=== PATIENT | female | born 1955 | race Caucasian/White ===

== ENCOUNTER 2018-10-26 06:36 | Inpatient (IN) | payer OTHER | END 2018-10-28 11:55 | disposition still patient (30) | LOC: PAS 11:25 → ORTHO 4S 17:58 → PAS 17:58 → ORTHO 4S 06:36 | PROC: 0SRD0J9 Replacement of Left Knee Joint with Synthetic Substitute, Cemented, Open Approach (ICD-10-PCS; principal; 2018-10-26 13:09) | DX: M17.12 Unilateral primary osteoarthritis, left knee (principal); D62 Acute posthemorrhagic anemia; M47.814 Spondylosis without myelopathy or radiculopathy, thoracic region; M47.816 Spondylosis without myelopathy or radiculopathy, lumbar region ==

== ENCOUNTER 2022-10-29 04:26 | Inpatient (IN) | payer MEDICARE, OTHER ==
[2022-10-29] VITALS (13 sets, daily range): BP systolic 80–139; BP diastolic 42–83
[~2022-10-29] VITALS: Ht 147.3 cm; Wt 77.0 kg
[~2022-10-29 04:26] MED LIST: AMLO2.5T2 PO; AREDS; ATOR40TA PO; BLAC200C4 PO; BUSP5TAB3 PO; DICL100G15 TOP; DIPH-518 PO; DOXY25PO2 PO; LORA0.5T PO; MELATONIN10 MG PO; PANT-47 PO; POTA10CA45 PO; SUCR1TAB PO; TRIA1TAB3 PO; [UNRECOGNIZED DRUG - CODE] PO; [UNRECOGNIZED DRUG - OTHER]
[2022-10-29 04:58] LABS: BASOPHILS % (AUTO) 0.1 % (0-1); EOSINOPHILS % (AUTO) 0.1 % (0-6); HEMATOCRIT 36.6 % (35.0-45.0); HEMOGLOBIN 12.6 g/dl (12.0-16.0); LYMPHOCYTES # (AUTO) 0.9 X10'3 (1.1-4.8); LYMPHOCYTES % (AUTO) 5.8 % (21-51); MEAN CORPUSCULAR HEMOGLOBIN 31.9 PG (27.0-31.0); MEAN CORPUSCULAR HGB CONC 34.5 g/dL (33.0-36.5); MEAN CORPUSCULAR VOLUME 92.5 FL (78-98); MEAN PLATELET VOLUME 7.5 FL (7.4-10.4); NEUTROPHILS # (AUTO) 12.8 X10'3 (1.8-7.7); PLATELET COUNT 137 X10'3 (140-440); RED BLOOD COUNT 3.95 X10'6 (4.20-5.60); RED CELL DISTRIBUTION WIDTH 13.7 % (11.5-14.5); WHITE BLOOD COUNT 14.7 X10'3 (4.5-11.0)
[2022-10-29 05:14] LABS: ALANINE AMINOTRANSFERASE 31 U/L (12-78); ALKALINE PHOSPHATASE 82 IU/L (46-116); ANION GAP 8 (8-16); ASPARTATE AMINO TRANSFERASE 28 U/L (10-37); BILIRUBIN,TOTAL 1.1 MG/DL (0.1-1.0); BLOOD UREA NITROGEN 45 MG/DL (7-18); BUN/CREATININE RATIO 17.9 (10.0-20.0); CHLORIDE 96 MMOL/L (99-107); CREATININE 2.51 MG/DL (0.40-0.90); GLUCOSE 140 MG/DL (70-104); LIPASE < 50 U/L (73-393); SODIUM 132 MMOL/L (135-145); TOTAL CARBON DIOXIDE 27.7 MMOL/L (24-32); TOTAL PROTEIN 6.1 G/DL (6.4-8.2); eGFR 19 ML/MIN
[2022-10-29 05:25] LABS: CALCIUM 8.3 MG/DL (8.5-10.1)
[2022-10-29] MEDS ORDERED: piperacillin/tazo 3.375gm/50ml 50 ML IV ONE (05:50)
[2022-10-29] MEDS ORDERED: potassium Cl 40MEQ/1/2NS 520ml 520 ML IV ONE (05:55)
[2022-10-29] MEDS ORDERED: normal saline 1000ML IV soln IV ONE (06:20)
[2022-10-29 07:30] LABS: CLARITY,URINE CLOUDY (Clear); COLOR,URINE YELLOW (Yellow); GLUCOSE, URINE NEGATIVE (Neg); KETONES,URINE NEGATIVE (Neg); LEUKOCYTE ESTERASE ,URINE MODERATE (Neg); NITRITES, URINE NEGATIVE (Neg); OCCULT BLOOD,URINE LARGE (Neg); PROTEIN,URINE 100 mg/dl (Neg); UROBILINOGEN,URINE 0.2 E.U/dL (0.2-1.0)
[2022-10-29 07:35] LABS: UA COLLECTION TYPE STRAIGHT CATH
[2022-10-29 07:36] LABS: BACTERIA,URINE 4+ /HPF (Neg); RBC,URINE 0-2 /HPF (0-2); SQUAMOUS EPITHELIAL CELL,UR FEW /LPF (FEW); WBC,URINE TNTC /HPF (0-4)
[2022-10-29 07:37] LABS: MUCUS STRANDS FEW /LPF (Neg); WBC CLUMPS,URINE MANY /HPF (NEGATIVE)
[2022-10-29 08:05] LABS: APTT 46 SECONDS (22-32)
[2022-10-29] MEDS ORDERED: acetaminophen 325mg tablet PO ONE (08:15)
[2022-10-29] MEDS ORDERED: ondansetron/PF 4mg/2ml inj IV PRN (08:45)
[2022-10-29] MEDS ORDERED: magnesium 2GM in 50ml NS 50 ML IV PRN (08:45)
[2022-10-29] MEDS ORDERED: mag hydrox/Alum hydrox/simeth 30ml oral suspension PO PRN (08:45)
[2022-10-29] MEDS ORDERED: magnesium 4gm in 100ml NS 100 ML IV PRN (08:45)
[2022-10-29] MEDS ORDERED: acetaminophen 325mg tablet PO PRN ×2 (08:45→11:15)
[2022-10-29] MEDS ORDERED: magnesium hydroxide 30ml (MOM) UD suspension PO PRN ×2 (08:45→11:15)
[2022-10-29] MEDS ORDERED: potassium Cl 40MEQ/1/2NS 520ml 520 ML IV PRN (08:45)
[2022-10-29] MEDS ORDERED: magnesium Cl slow-release 64mg tablet PO PRN (08:45)
[2022-10-29] MEDS ORDERED: potassium Cl 20 mEq SR tablet PO PRN ×2 (08:45)
[2022-10-29] MEDS ORDERED: DOPamine 400mg/D5W 250ml 250 ML IV SCH (09:10)
[2022-10-29] MEDS: dextrose 5%-1/2 normal saline 1,000 ML IV SCH ×2 (09:19→10:00)
[2022-10-29] MEDS ORDERED: NORepinephrine 8mg/ 250ml NS 250 ML IV PRN (09:30)
[2022-10-29] MEDS ORDERED: normal saline 1000ml 1,000 ML IV ONE (10:00)
--- NOTE | 2022-10-29 10:25 | NUR ---
Report received from JENNIFER Lopez RN
--- NOTE | 2022-10-29 10:53 | NUR ---
This AM, RN administer 2L 0.9% NaCl, upon completion, SBP was 100s. Shortly thereafter, BP decreased to 69/37. RN notified Dr. Vo and Dr. Tarango SAMSON. Per Dr. Gilda RN to order dopamine gtt per protocol. RN ordered. However, Per Dr. Sukhdeep RN to hold dopamine gtt and administer levophed alternatively. Central line inserted. Levophed started at 0.1 mcg/kg/mn. Dr. Elias at bedside, verbal orders to administer 0.9% NaCl IVF at 999 ml/hr, stop D5 and 0.45% NaCl, and transfer pt to the ICU [facility]. Central line confirmed by XR. Levophed titrated to 0.15 mcg/kg/mn. Pt tolerating, BP 103/43, MAP 65. RN gave nurse report to JUANITA Rose. Pt stable upon transfer.
[2022-10-29] MEDS: normal saline 1000ml 1,000 ML IV SCH ×2 (11:45→20:26)
[2022-10-29] MEDS ORDERED: ROSU20TA31 PO (13:32)
[2022-10-29] MEDS ORDERED: ALBU17AE26 (13:32)
[2022-10-29] MEDS ORDERED: GABA300C PO (13:32)
[2022-10-29] MEDS ORDERED: HYDR-3965 PO (13:32)
[2022-10-29] MEDS ORDERED: GABAPENTIN PO (13:32)
[2022-10-29] MEDS ORDERED: PANT40TA54 PO (13:32)
[2022-10-29] MEDS ORDERED: GABA300C (13:32)
[2022-10-29] MEDS ORDERED: ALBU18HF2 PO (13:32)
[2022-10-29] MEDS ORDERED: WARF3TAB56 PO (13:32)
[2022-10-29] MEDS ORDERED: METO-384 PO (13:32)
[2022-10-29] MEDS ORDERED: BUSP15TA3 PO (13:32)
[2022-10-29] MEDS ORDERED: POTA8TAB69 PO (13:32)
[2022-10-29] MEDS ORDERED: WARF-55 PO (13:32)
[2022-10-29] MEDS ORDERED: LOSA50TA64 PO (13:32)
[2022-10-29] MEDS: CefTRIAXone/D5W-Rocephin 1gm 50 ML IV SCH (13:40)
[2022-10-29] MEDS: morphine 2 MG/ML inj. syringe IV PRN ×2 (13:41→23:59)
[2022-10-29] MEDS: piperacillin/tazo 3.375gm/50ml 50 ML IV SCH (16:19)
--- NOTE | 2022-10-29 18:00 | NUR ---
Patient in room ICU 2037. I have received report from Lucía GRANT and had the opportunity to ask questions and assume patient care.
--- NOTE | 2022-10-29 18:29 | NUR ---
Problems reprioritized. Patient report given, questions answered & plan of care reviewed with JUANITA Pizarro. Addendum: 10/29/22 at 1829 by Rose Garcia RN report given JUANITA Sofia not JUANITA Pizarro
[2022-10-29] MEDS: K and/or MAG REPLACEMENT MC SCH (20:00)
[2022-10-29] MEDS ORDERED: docusate sod 100mg capsule PO SCH (20:00)
[2022-10-29] MEDS: docusate sod 100mg capsule PO SCH (20:00)
[2022-10-30] VITALS (23 sets, daily range): BP systolic 72–154; BP diastolic 41–81
[2022-10-30] MEDS: piperacillin/tazo 3.375gm/50ml 50 ML IV SCH ×3 (01:54→20:50)
[2022-10-30 03:06] LABS: BASOPHILS % (AUTO) 0.1 % (0-1); EOSINOPHILS % (AUTO) 0.1 % (0-6); HEMATOCRIT 28.9 % (35.0-45.0); LYMPHOCYTES # (AUTO) 0.6 X10'3 (1.1-4.8); LYMPHOCYTES % (AUTO) 6.9 % (21-51); MEAN CORPUSCULAR HEMOGLOBIN 31.9 PG (27.0-31.0); MEAN CORPUSCULAR HGB CONC 34.5 g/dL (33.0-36.5); MEAN CORPUSCULAR VOLUME 92.5 FL (78-98); MEAN PLATELET VOLUME 7.6 FL (7.4-10.4); MONOCYTES # (AUTO) 0.7 X10'3 (0-0.9); MONOCYTES % (AUTO) 7.7 % (2-12); NEUTROPHILS # (AUTO) 7.8 X10'3 (1.8-7.7); NEUTROPHILS % (AUTO) 85.2 % (42-75); PLATELET COUNT 103 X10'3 (140-440); RED BLOOD COUNT 3.12 X10'6 (4.20-5.60); RED CELL DISTRIBUTION WIDTH 14.1 % (11.5-14.5); WHITE BLOOD COUNT 9.2 X10'3 (4.5-11.0)
[2022-10-30 03:22] LABS: ALANINE AMINOTRANSFERASE 51 U/L (12-78); ALBUMIN/GLOBULIN RATIO 0.7 (1.1-1.5); ALKALINE PHOSPHATASE 131 IU/L (46-116); ANION GAP 8 (8-16); ASPARTATE AMINO TRANSFERASE 46 U/L (10-37); BILIRUBIN,TOTAL 0.6 MG/DL (0.1-1.0); BLOOD UREA NITROGEN 33 MG/DL (7-18); BUN/CREATININE RATIO 17.8 (10.0-20.0); CHLORIDE 108 MMOL/L (99-107); CREATININE 1.85 MG/DL (0.40-0.90); GLUCOSE 122 MG/DL (70-104); MAGNESIUM 2.8 MG/DL (1.5-2.4); POTASSIUM 3.3 MMOL/L (3.5-5.1); SODIUM 139 MMOL/L (135-145); TOTAL CARBON DIOXIDE 23.2 MMOL/L (24-32); TOTAL PROTEIN 4.8 G/DL (6.4-8.2); eGFR 27 ML/MIN
--- NOTE | 2022-10-30 03:32 | NUR ---
CALLED CRITICAL RESULTS OF INR 5.[address] LANDON, PHARMACY WILL ADJUST THE DOSE. Addendum: 10/30/22 at 0333 by Lisa Wylie RN Amended: Links added.
[2022-10-30 03:39] LABS: PLATELET ESTIMATE DECREASED
[2022-10-30 03:40] LABS: BURR CELLS 1+; ROULEAUX 1+
[2022-10-30] MEDS: normal saline 1000ml 1,000 ML IV SCH ×2 (03:43→11:44)
[2022-10-30] MEDS: dextrose 5%-1/2 normal saline 1,000 ML IV SCH (06:05)
--- NOTE | 2022-10-30 06:40 | NUR ---
Patient in room ICU 2037. I have received report from JUANITA Sofia and had the opportunity to ask questions and assume patient care.
[2022-10-30] MEDS: docusate sod 100mg capsule PO SCH ×2 (08:00→20:00)
[2022-10-30] MEDS: K and/or MAG REPLACEMENT MC SCH ×2 (08:00→20:00)
[2022-10-30] MEDS ORDERED: pantoprazole 40MG/NS 100ML BAG 100 ML IV SCH (08:00)
[2022-10-30] MEDS: CefTRIAXone/D5W-Rocephin 1gm 50 ML IV SCH (08:13)
[2022-10-30] MEDS: morphine 2 MG/ML inj. syringe IV PRN (09:22)
[2022-10-30] MEDS ORDERED: albumin (human) 25% 100ml IV 400 ML IV ONE (10:15)
[2022-10-30] MEDS: albumin (Human) 5% 250ml 250 ML IV SCH ×3 (10:46→19:11)
--- NOTE | 2022-10-30 11:34 | NUR ---
Initial: Pt admit for septic shock and pyelonephritis. Currently on a regular diet and averaging 42% PO intake meeting 89% estimated energy needs and 65% estimated protein needs. Unable to visit with pt at bedside as pt working with bedside RN. Will follow further trends in PO intake so most appropriate nutrition intervention is recommended. LBM 10/29 per EMR however per RN at [facility] pt with two formed BMs today. Will continue to follow closely. Recommendations: 1) Continue regular/lactose free diet 2) Monitor need for ONS/additional protein 3) Routine bowel care 4) Weekly scaled weights Addendum: 10/30/22 at [address] Amended: Links added.
[2022-10-30] MEDS: HYDROcodone/acetaminophen 5mg/325mg tablet PO PRN ×2 (14:53→19:10)
[2022-10-30] MEDS ORDERED: AMIO200T61 PO (16:11)
[2022-10-30] MEDS ORDERED: HYDROcodone/acetaminophen 5mg/325mg tablet PO PRN (16:45)
[2022-10-30] MEDS: amiodarone 200mg tablet PO SCH (16:47)
[2022-10-30] MEDS ORDERED: DIPH25CA51 PO (17:24)
[2022-10-30] MEDS ORDERED: WARF2.5T82 PO (17:24)
[2022-10-30] MEDS: gabapentin 300mg capsule PO SCH ×2 (17:24→20:51)
[2022-10-30] MEDS ORDERED: CHOL500050 PO (17:25)
[2022-10-30] MEDS ORDERED: MULT-1085 PO (17:25)
--- NOTE | 2022-10-30 18:39 | NUR ---
Problems reprioritized. Patient report given, questions answered & plan of care reviewed with JUANITA Quiroz.
[2022-10-30] MEDS ORDERED: piperacillin/tazo 3.375gm/50 ML IV SCH (20:00)
[2022-10-30] MEDS: busPIRone 15mg tablet PO SCH (20:51)
[2022-10-31] VITALS (10 sets, daily range): BP systolic 107–170; BP diastolic 66–98
[2022-10-31] MEDS: piperacillin/tazo 3.375gm/50ml 50 ML IV SCH ×4 (00:20→23:32)
[2022-10-31] MEDS: normal saline 1000ml 1,000 ML IV SCH ×2 (01:09→14:32)
[2022-10-31] MEDS: HYDROcodone/acetaminophen 5mg/325mg tablet PO PRN ×4 (01:35→23:40)
[2022-10-31 02:46] LABS: BASOPHILS % (AUTO) 0.3 % (0-1); EOSINOPHILS # (AUTO) 0.1 X10'3 (0-0.9); EOSINOPHILS % (AUTO) 1.5 % (0-6); HEMATOCRIT 28.6 % (35.0-45.0); HEMOGLOBIN 9.7 g/dl (12.0-16.0); LYMPHOCYTES # (AUTO) 0.7 X10'3 (1.1-4.8); MEAN CORPUSCULAR HEMOGLOBIN 31.9 PG (27.0-31.0); MEAN CORPUSCULAR HGB CONC 34.1 g/dL (33.0-36.5); MEAN CORPUSCULAR VOLUME 93.4 FL (78-98); MEAN PLATELET VOLUME 7.7 FL (7.4-10.4); MONOCYTES # (AUTO) 0.8 X10'3 (0-0.9); NEUTROPHILS % (AUTO) 79.2 % (42-75); PLATELET COUNT 99 X10'3 (140-440); RED BLOOD COUNT 3.06 X10'6 (4.20-5.60); RED CELL DISTRIBUTION WIDTH 14.4 % (11.5-14.5); WHITE BLOOD COUNT 7.5 X10'3 (4.5-11.0)
[2022-10-31 03:55] LABS: ALANINE AMINOTRANSFERASE 105 U/L (12-78); ALBUMIN 3.2 G/DL (3.4-5.0); ALBUMIN/GLOBULIN RATIO 1.3 (1.1-1.5); ALKALINE PHOSPHATASE 176 IU/L (46-116); ANION GAP 10 (8-16); ASPARTATE AMINO TRANSFERASE 97 U/L (10-37); BILIRUBIN,TOTAL 0.5 MG/DL (0.1-1.0); BLOOD UREA NITROGEN 25 MG/DL (7-18); BUN/CREATININE RATIO 14.9 (10.0-20.0); CALCIUM 7.9 MG/DL (8.5-10.1); CHLORIDE 110 MMOL/L (99-107); CREATININE 1.68 MG/DL (0.40-0.90); GLUCOSE 120 MG/DL (70-104); MAGNESIUM 2.8 MG/DL (1.5-2.4); POTASSIUM 3.5 MMOL/L (3.5-5.1); SODIUM 143 MMOL/L (135-145); TOTAL CARBON DIOXIDE 22.7 MMOL/L (24-32); TOTAL PROTEIN 5.7 G/DL (6.4-8.2); eGFR 30 ML/MIN
--- NOTE | 2022-10-31 06:30 | NUR ---
Patient in room ICU 2037. I have received report from JUANITA Quiroz and had the opportunity to ask questions and assume patient care.
--- NOTE | 2022-10-31 06:46 | NUR ---
Problems reprioritized. Patient report given, questions answered & plan of care reviewed with JUANITA Millard.
[2022-10-31] MEDS: albumin (Human) 5% 250ml 250 ML IV SCH ×2 (06:55)
[2022-10-31] MEDS: amiodarone 200mg tablet PO SCH (06:56)
--- NOTE | 2022-10-31 07:30 | NUR ---
Pt transported to Neuro floor, room 4012B, with all belongings and medications. Accepting RN Venice at bedside to assist. Pt settled into hospital bed, call light placed within reach. Breakfast tray brought from ICU and provided to pt.
[2022-10-31] MEDS: docusate sod 100mg capsule PO SCH ×2 (08:00→20:00)
[2022-10-31] MEDS: K and/or MAG REPLACEMENT MC SCH ×2 (08:00→20:00)
[2022-10-31] MEDS ORDERED: amiodarone 200mg tablet PO SCH (08:00)
[2022-10-31] MEDS ORDERED: phytonadione inj. 3 MG in normal saline 100ml IV soln 100 ML IV ONE (08:50)
[2022-10-31] MEDS: pantoprazole 40mg Tablet.DR PO SCH (08:50)
[2022-10-31] MEDS: busPIRone 15mg tablet PO SCH ×2 (08:51→20:18)
[2022-10-31] MEDS: potassium chloride 8mEq ER tablet PO SCH (08:51)
[2022-10-31] MEDS: gabapentin 300mg capsule PO SCH ×2 (08:51→12:42)
[2022-10-31] MEDS ORDERED: phytonadione 10 MG/1 ML amp PO ONE (09:30)
[2022-10-31] MEDS: morphine 2 MG/ML inj. syringe IV PRN (11:58)
[2022-10-31] MEDS: phenazopyridine 100mg tablet PO SCH ×2 (12:41→17:15)
[2022-10-31] MEDS: ondansetron/PF 4mg/2ml inj IV PRN (12:50)
--- NOTE | 2022-10-31 18:58 | NUR ---
Page Sent PAGER ID: [phone] MESSAGE: [id number] Debra Bajwa: Pt in Afib sustaining 130-140s. EKG done. Pt got 200mg amiodarone in AM
--- NOTE | 2022-10-31 19:32 | NUR ---
Page Sent PAGER ID: [phone] MESSAGE: [id number]: Debra Bajwa: Pt in AFib sustaining in 130s-150s. EKG done, BP 143/94. pt retaining fluid in left upper extremity, placed on 1L o2 and is 93%
[2022-10-31] MEDS ORDERED: diltiazem 5mg/ml 5ml inj. IV ONE (19:50)
--- NOTE | 2022-10-31 21:07 | NUR ---
10mg Cardizem was given at 2005 by ACLS nurse. Per television news producer HR is now 90s - 110s and still Afib.
--- NOTE | 2022-10-31 21:45 | NUR ---
Called to room 4012 to give cardizam IV for pt in rapid afib; pt awake, alert, c/o mild SOB; HR 131 on tele box, GBP 139/96; sat 97% on NC 1L; 10mg cardizam given IV thru GRACY patent IV; at 2009: bp 129/79, HR 91, still afib, sat 93%; pt denies SOB at this time; repeat VS at 2019: BP 130/88, HR 86, still afib, sat 96%; HR checked multiple times on tele monitor; remains in afib, rate 90-100s
--- NOTE | 2022-10-31 22:00 | NUR ---
supervisor television chassis repair adv pt converted to sinus rhythm
[2022-11-01] VITALS (24 sets, daily range): BP systolic 120–174; BP diastolic 71–98
--- NOTE | 2022-11-01 03:32 | NUR ---
per telecommunications officer pt converted back into afib w/ HR in 90s and 100s
[2022-11-01] MEDS: ondansetron/PF 4mg/2ml inj IV PRN ×2 (04:09→20:10)
[2022-11-01] MEDS: normal saline 1000ml 1,000 ML IV SCH ×2 (04:09→16:35)
--- NOTE | 2022-11-01 04:30 | NUR ---
outbound telemarketer adv pt HR elevated into 130 - 140s. pt c/o N/V, CP 8/10, some SOB. EKG done, administered Nitro tab. pt adv CP 6/10 after 15 min.
[2022-11-01] MEDS ORDERED: nitroGLYCERIN 0.4mg SUBLingual tab SL ONE (04:34)
[2022-11-01] MEDS ORDERED: diltiazem-D5W 125mg/125ml 100 ML IV SCH (04:35)
[2022-11-01] MEDS ORDERED: nitroGLYCERIN 0.4mg SUBLingual tab SL PRN (04:35)
--- NOTE | 2022-11-01 05:00 | NUR ---
Patient in room PCU 3013. I have received report from WEST MADISON and had the opportunity to ask questions and assume patient care.
[2022-11-01 05:12] LABS: BASOPHILS % (AUTO) 0.2 % (0-1); EOSINOPHILS # (AUTO) 0.2 X10'3 (0-0.9); EOSINOPHILS % (AUTO) 2.1 % (0-6); HEMATOCRIT 30.6 % (35.0-45.0); HEMOGLOBIN 10.4 g/dl (12.0-16.0); LYMPHOCYTES # (AUTO) 0.6 X10'3 (1.1-4.8); LYMPHOCYTES % (AUTO) 7.6 % (21-51); MEAN CORPUSCULAR HEMOGLOBIN 32.1 PG (27.0-31.0); MEAN CORPUSCULAR VOLUME 94.4 FL (78-98); MEAN PLATELET VOLUME 8.4 FL (7.4-10.4); MONOCYTES # (AUTO) 0.9 X10'3 (0-0.9); MONOCYTES % (AUTO) 10.2 % (2-12); NEUTROPHILS # (AUTO) 6.7 X10'3 (1.8-7.7); NEUTROPHILS % (AUTO) 79.9 % (42-75); PLATELET COUNT 110 X10'3 (140-440); RED BLOOD COUNT 3.24 X10'6 (4.20-5.60); RED CELL DISTRIBUTION WIDTH 14.7 % (11.5-14.5); WHITE BLOOD COUNT 8.4 X10'3 (4.5-11.0)
--- NOTE | 2022-11-01 05:20 | NUR ---
marcia pt to [facility] [id number]
[2022-11-01 05:31] LABS: ALANINE AMINOTRANSFERASE 108 U/L (12-78); ALBUMIN 3.1 G/DL (3.4-5.0); ALBUMIN/GLOBULIN RATIO 1.1 (1.1-1.5); ALKALINE PHOSPHATASE 200 IU/L (46-116); ANION GAP 8 (8-16); ASPARTATE AMINO TRANSFERASE 61 U/L (10-37); BILIRUBIN,TOTAL 0.7 MG/DL (0.1-1.0); BLOOD UREA NITROGEN 23 MG/DL (7-18); CALCIUM 8.3 MG/DL (8.5-10.1); CHLORIDE 110 MMOL/L (99-107); CREATININE 1.64 MG/DL (0.40-0.90); GLUCOSE 133 MG/DL (70-104); MAGNESIUM 2.5 MG/DL (1.5-2.4); POTASSIUM 3.6 MMOL/L (3.5-5.1); SODIUM 143 MMOL/L (135-145); TOTAL CARBON DIOXIDE 24.9 MMOL/L (24-32); TOTAL PROTEIN 5.9 G/DL (6.4-8.2); eGFR 31 ML/MIN
[2022-11-01] MEDS: diltiazem-NS 100mg/100ml 100 ML IV SCH ×2 (05:41→19:41)
--- NOTE | 2022-11-01 06:43 | NUR ---
Problems reprioritized. Patient report given, questions answered & plan of care reviewed with GEMA GRANT.
[2022-11-01] MEDS: docusate sod 100mg capsule PO SCH ×2 (08:00→20:00)
[2022-11-01] MEDS: K and/or MAG REPLACEMENT MC SCH ×2 (08:00→19:39)
[2022-11-01] MEDS: gabapentin 300mg capsule PO SCH (08:53)
[2022-11-01] MEDS: gabapentin 400mg capsule PO SCH (08:53)
[2022-11-01] MEDS: pantoprazole 40mg Tablet.DR PO SCH (08:53)
[2022-11-01] MEDS: potassium chloride 8mEq ER tablet PO SCH (08:53)
[2022-11-01] MEDS: amiodarone 200mg tablet PO SCH (08:53)
[2022-11-01] MEDS: metoprolol succinate 25mg (24-HOUR) SR. Tablet PO SCH ×2 (08:54→20:05)
[2022-11-01] MEDS: busPIRone 15mg tablet PO SCH ×2 (09:28→21:10)
[2022-11-01] MEDS: phenazopyridine 100mg tablet PO SCH ×3 (09:28→20:05)
[2022-11-01] MEDS: CefTRIAXone 2gm/D5W 50ml BAG 50 ML IV SCH (09:31)
[2022-11-01] MEDS: HYDROcodone/acetaminophen 5mg/325mg tablet PO PRN ×2 (10:28→21:13)
[2022-11-01] MEDS: morphine 2 MG/ML inj. syringe IV PRN (13:28)
--- NOTE | 2022-11-01 18:00 | NUR ---
Patient in room PCU 3013. I have received report from DIPESH GRANT and had the opportunity to ask questions and assume patient care.
--- NOTE | 2022-11-01 18:38 | NUR ---
[place] Medication Administration: For this medication-pass time frame, all medication were reviewed, dispensed, administered and documented per hospital policy by JUANITA Holden.
--- NOTE | 2022-11-01 18:38 | NUR ---
Problems reprioritized. Patient report given, questions answered & plan of care reviewed with JUANITA Nassar.
[2022-11-02] MEDS: ondansetron/PF 4mg/2ml inj IV PRN ×2 (01:43→08:23)
[2022-11-02 02:00] VITALS: BP 140/101
--- NOTE | 2022-11-02 02:00 | NUR ---
PATIENT HAD BRIEF EPISODE OF ELEVATE HR, NO CHEST PAIN, ASYMPTOMATIC.
[2022-11-02] MEDS: HYDROcodone/acetaminophen 5mg/325mg tablet PO PRN ×3 (03:18→20:54)
[2022-11-02] MEDS: normal saline 1000ml 1,000 ML IV SCH (03:27)
[2022-11-02 03:32] LABS: ALANINE AMINOTRANSFERASE 114 U/L (12-78); ALBUMIN/GLOBULIN RATIO 1.1 (1.1-1.5); ALKALINE PHOSPHATASE 202 IU/L (46-116); ANION GAP 9 (8-16); ASPARTATE AMINO TRANSFERASE 62 U/L (10-37); BILIRUBIN,TOTAL 0.8 MG/DL (0.1-1.0); BLOOD UREA NITROGEN 20 MG/DL (7-18); BUN/CREATININE RATIO 14.7 (10.0-20.0); CALCIUM 8.4 MG/DL (8.5-10.1); CHLORIDE 110 MMOL/L (99-107); CREATININE 1.36 MG/DL (0.40-0.90); GLUCOSE 115 MG/DL (70-104); MAGNESIUM 2.2 MG/DL (1.5-2.4); POTASSIUM 3.3 MMOL/L (3.5-5.1); SODIUM 144 MMOL/L (135-145); TOTAL CARBON DIOXIDE 24.8 MMOL/L (24-32); TOTAL PROTEIN 5.8 G/DL (6.4-8.2); eGFR 39 ML/MIN
[2022-11-02] MEDS: K and/or MAG REPLACEMENT MC SCH ×2 (03:48→20:00)
[2022-11-02 04:08] LABS: BASOPHILS % (AUTO) 0.2 % (0-1); EOSINOPHILS # (AUTO) 0.1 X10'3 (0-0.9); EOSINOPHILS % (AUTO) 1.1 % (0-6); HEMATOCRIT 30.5 % (35.0-45.0); HEMOGLOBIN 10.3 g/dl (12.0-16.0); LYMPHOCYTES # (AUTO) 0.8 X10'3 (1.1-4.8); LYMPHOCYTES % (AUTO) 8.8 % (21-51); MEAN CORPUSCULAR HEMOGLOBIN 31.9 PG (27.0-31.0); MEAN CORPUSCULAR HGB CONC 33.7 g/dL (33.0-36.5); MEAN CORPUSCULAR VOLUME 94.6 FL (78-98); MEAN PLATELET VOLUME 8.4 FL (7.4-10.4); MONOCYTES # (AUTO) 0.9 X10'3 (0-0.9); MONOCYTES % (AUTO) 9.7 % (2-12); NEUTROPHILS # (AUTO) 7.4 X10'3 (1.8-7.7); NEUTROPHILS % (AUTO) 80.2 % (42-75); PLATELET COUNT 127 X10'3 (140-440); RED BLOOD COUNT 3.23 X10'6 (4.20-5.60); RED CELL DISTRIBUTION WIDTH 14.9 % (11.5-14.5); WHITE BLOOD COUNT 9.2 X10'3 (4.5-11.0)
--- NOTE | 2022-11-02 04:09 | NUR ---
3013B-DIPESH YANCEY-ADMITTED FOR PYELONEPHRITIS, ON PYRIDIUM FOR ECOLI IN URINE. HAD UA C/S ON 10/29-NOW HAS YNES BLOOD IN URINE/BM. HAS HAD 7 BM'S TOTAL TONIGHT. DOES PATIENT NEED NEW ORDER FOR TESTS/LABS? JOSEPH TUCKER [id number] Addendum: 11/02/22 at 0411 by Joseph Cui RN YAMILET CALLED BACK, STATED TO ORDER COMP, CBC, PROCALCITONIN AND NEW UA/ C&S-. cALLED LAB, BLOOD HAD ALREADY BEEN DRAWN, LAB TO ORDER PROCALCITONIN-ADD ON. WILL ORDER NEW UA C/S. DEBBIE GRANT
--- NOTE | 2022-11-02 06:09 | NUR ---
Problems reprioritized. Patient report given, questions answered & plan of care reviewed with BRAEDEN MADISON.
--- NOTE | 2022-11-02 06:17 | NUR ---
Problems reprioritized. Patient report given, questions answered & plan of care reviewed with JUANITA Nassar.
[2022-11-02 06:30] VITALS: BP 136/80
--- NOTE | 2022-11-02 07:28 | NUR ---
ramandeep: [id number] Pt: Debra Bajwa RM: 3013B Morning lab K: 3.3. There is scheduled 8 meq of Klor-con. Do you want replaced as protocol? Creatinine is 1.[address] Guerrero due to know replacement in system. Addendum: 11/02/22 at 0906 by Ramandeep Araiza LVN, LVN Dr. Callahan
[2022-11-02] MEDS: CefTRIAXone 2gm/D5W 50ml BAG 50 ML IV SCH (07:34)
[2022-11-02] MEDS: docusate sod 100mg capsule PO SCH ×2 (08:00→20:53)
[2022-11-02] MEDS: busPIRone 15mg tablet PO SCH ×2 (08:00→20:53)
[2022-11-02] MEDS: phenazopyridine 100mg tablet PO SCH ×3 (08:00→18:41)
[2022-11-02] MEDS: potassium chloride 8mEq ER tablet PO SCH (09:27)
[2022-11-02] MEDS: gabapentin 300mg capsule PO SCH (09:27)
[2022-11-02] MEDS: pantoprazole 40mg Tablet.DR PO SCH (09:28)
[2022-11-02] MEDS: metoprolol succinate 25mg (24-HOUR) SR. Tablet PO SCH ×2 (09:28→20:53)
[2022-11-02] MEDS: gabapentin 400mg capsule PO SCH (09:28)
[2022-11-02] MEDS: amiodarone 200mg tablet PO SCH (09:33)
[2022-11-02] MEDS ORDERED: magnesium Cl slow-release 64mg tablet PO PRN (10:10)
[2022-11-02] MEDS ORDERED: potassium Cl 20 mEq SR tablet PO PRN (10:10)
[2022-11-02] MEDS ORDERED: magnesium 2GM in 50ml NS 50 ML IV PRN (10:10)
[2022-11-02] MEDS ORDERED: magnesium 4gm in 100ml NS 100 ML IV PRN (10:10)
[2022-11-02] MEDS ORDERED: potassium Cl 40MEQ/1/2NS 520ml 520 ML IV PRN (10:10)
--- NOTE | 2022-11-02 10:29 | NUR ---
Reassessment: Pt with average PO intake down to 30% since 10/31, documented to have refused dinner 10/31 though per EMR pt ate 50% of a turkey sandwich. Patient's diet digressed to full liquids to begin at lunch today. Per EMR pt with N/V, abdominal pain, and diarrhea, likely impacting appetite and PO intake. Recommend resuming regular diet as medically indicated and implementing Ensure Enlive TID once N/V subsides and pt able to better tolerate PO intake. LBM 11/01. Routine Colace has been held since admit however pt did receive it this morning per EMR. Will continue to follow closely and make recommendations as appropriate. Recommendations: 1) Resume regular/lactose free diet as medically indicated 2) Consider Ensure Enlive TID once N/V subsides 3) Bowel care per rx; consider antidiarrheal and/or probiotic if diarrhea continues 4) Weekly scaled weights Addendum: 11/02/22 at [address] Amended: Links added.
[2022-11-02] MEDS: potassium Cl 20 mEq SR tablet PO PRN ×3 (11:19→20:53)
[2022-11-02] MEDS ORDERED: furosemide 20 MG/2 ML vial IV ONE (12:50)
--- NOTE | 2022-11-02 18:41 | NUR ---
Problems reprioritized. Patient report given, questions answered & plan of care reviewed with Justine, INDUSTRIAL WELDER
[2022-11-02 19:00] VITALS: BP 119/80
[2022-11-02] MEDS ORDERED: pantoprazole 40MG/NS 100ML BAG 100 ML IV SCH (19:00)
[2022-11-02] MEDS ORDERED: warfarin 5mg tablet PO ONE (21:00)
[2022-11-02 22:45] LABS: OCCULT BLOOD STOOL NEGATIVE (Neg)
[2022-11-02 23:00] VITALS: BP 152/82
[2022-11-03] VITALS (11 sets, daily range): BP systolic 143–193; BP diastolic 77–101
--- NOTE | 2022-11-03 00:40 | NUR ---
I AGREE WITH PHYSICAL THERAPY RESIDENT ASSESSMENTS
[2022-11-03] MEDS: morphine 2 MG/ML inj. syringe IV PRN (02:05)
--- NOTE | 2022-11-03 03:18 | NUR ---
Page sent to MD - Pt 4349V, Mayi. Garett, pt having episodes of emesis, last episode after her 1999 meds, bp is 188/92,HR 60. No PRN bp med currently ordered, please advise. Justine Warner @8211.
[2022-11-03] MEDS: ondansetron/PF 4mg/2ml inj IV PRN (03:20)
--- NOTE | 2022-11-03 03:38 | NUR ---
MD spoke to LN re pt's bp, continue to monitor, MD did not want to give any bp meds r/t egd being done this am and bp most likely related to pain. Pt appears stable att.
--- NOTE | 2022-11-03 05:21 | NUR ---
LN rechecked pt's BP manually @ 0510, 134/78, pt is resting comfortably att. Will continue to monitor.
--- NOTE | 2022-11-03 06:45 | NUR ---
Patient in room PCU 3013. I have received report from Justine MADISON and had the opportunity to ask questions and assume patient care.
[2022-11-03 07:22] LABS: BASOPHILS # (AUTO) 0.1 X10'3 (0-0.2); BASOPHILS % (AUTO) 0.4 % (0-1); EOSINOPHILS # (AUTO) 0.1 X10'3 (0-0.9); EOSINOPHILS % (AUTO) 1.2 % (0-6); HEMATOCRIT 29.8 % (35.0-45.0); HEMOGLOBIN 10.1 g/dl (12.0-16.0); LYMPHOCYTES # (AUTO) 0.7 X10'3 (1.1-4.8); LYMPHOCYTES % (AUTO) 5.9 % (21-51); MEAN CORPUSCULAR HEMOGLOBIN 31.8 PG (27.0-31.0); MEAN CORPUSCULAR HGB CONC 33.8 g/dL (33.0-36.5); MEAN CORPUSCULAR VOLUME 94.1 FL (78-98); MEAN PLATELET VOLUME 8.1 FL (7.4-10.4); MONOCYTES # (AUTO) 0.8 X10'3 (0-0.9); MONOCYTES % (AUTO) 6.4 % (2-12); NEUTROPHILS # (AUTO) 10.5 X10'3 (1.8-7.7); NEUTROPHILS % (AUTO) 86.1 % (42-75); PLATELET COUNT 174 X10'3 (140-440); RED BLOOD COUNT 3.17 X10'6 (4.20-5.60); RED CELL DISTRIBUTION WIDTH 14.5 % (11.5-14.5); WHITE BLOOD COUNT 12.2 X10'3 (4.5-11.0)
[2022-11-03 07:50] LABS: ALANINE AMINOTRANSFERASE 88 U/L (12-78); ALBUMIN 2.8 G/DL (3.4-5.0); ALKALINE PHOSPHATASE 179 IU/L (46-116); ANION GAP 11 (8-16); ASPARTATE AMINO TRANSFERASE 38 U/L (10-37); BILIRUBIN,TOTAL 0.8 MG/DL (0.1-1.0); BLOOD UREA NITROGEN 17 MG/DL (7-18); BUN/CREATININE RATIO 15.2 (10.0-20.0); CALCIUM 8.8 MG/DL (8.5-10.1); CHLORIDE 108 MMOL/L (99-107); CREATININE 1.12 MG/DL (0.40-0.90); GLUCOSE 115 MG/DL (70-104); POTASSIUM 3.7 MMOL/L (3.5-5.1); SODIUM 145 MMOL/L (135-145); TOTAL CARBON DIOXIDE 25.7 MMOL/L (24-32); TOTAL PROTEIN 5.7 G/DL (6.4-8.2); eGFR 49 ML/MIN
[2022-11-03] MEDS ORDERED: fentaNYL/PF 50MCG/1 ML 2ML syringe ONE (07:52)
[2022-11-03] MEDS ORDERED: LIDOcaine Viscous 15ml cup ONE (07:52)
[2022-11-03] MEDS ORDERED: MIDAZolam 1 MG/ML 5ML VIAL ONE (07:52)
[2022-11-03] MEDS: K and/or MAG REPLACEMENT MC SCH ×2 (08:00→20:00)
[2022-11-03] MEDS: docusate sod 100mg capsule PO SCH ×2 (08:00→20:00)
[2022-11-03] MEDS: CefTRIAXone 2gm/D5W 50ml BAG 50 ML IV SCH (09:29)
[2022-11-03] MEDS: metoprolol succinate 25mg (24-HOUR) SR. Tablet PO SCH ×2 (09:30→19:56)
[2022-11-03] MEDS: busPIRone 15mg tablet PO SCH ×2 (09:30→19:50)
[2022-11-03] MEDS: amiodarone 200mg tablet PO SCH (09:30)
[2022-11-03] MEDS: phenazopyridine 100mg tablet PO SCH (09:31)
[2022-11-03] MEDS: pantoprazole 40mg Tablet.DR PO SCH (09:31)
[2022-11-03] MEDS: gabapentin 400mg capsule PO SCH (09:31)
[2022-11-03] MEDS: gabapentin 300mg capsule PO SCH (09:31)
[2022-11-03] MEDS: potassium chloride 8mEq ER tablet PO SCH (09:32)
--- NOTE | 2022-11-03 11:58 | NUR ---
Spoke with he gave order for PT eval and treat
[2022-11-03] MEDS: HYDROcodone/acetaminophen 5mg/325mg tablet PO PRN ×2 (15:20→23:36)
--- NOTE | 2022-11-03 16:35 | NUR ---
I AGREE WITH NON ACOUSTIC OPERATOR ASSESSMENT
--- NOTE | 2022-11-03 18:33 | NUR ---
Problems reprioritized. Patient report given, questions answered & plan of care reviewed with Olive GRANT.
[2022-11-03] MEDS: ondansetron 4mg rapidly disintigrating tab PO PRN (20:51)
[2022-11-03] MEDS ORDERED: warfarin 5mg tablet PO ONE (21:00)
[2022-11-04 02:00] VITALS: BP 154/69
[2022-11-04] MEDS: ondansetron 4mg rapidly disintigrating tab PO PRN (04:45)
--- NOTE | 2022-11-04 06:30 | NUR ---
Patient in room PCU 3013. I have received report from Olive GRANT and had the opportunity to ask questions and assume patient care.
--- NOTE | 2022-11-04 06:39 | NUR ---
Problems reprioritized. Patient report given, questions answered & plan of care reviewed with Radha.
[2022-11-04 07:00] VITALS: BP 197/76
[2022-11-04] MEDS: docusate sod 100mg capsule PO SCH ×2 (08:00→20:00)
[2022-11-04] MEDS: K and/or MAG REPLACEMENT MC SCH ×2 (08:00→19:37)
[2022-11-04] MEDS: CefTRIAXone 2gm/D5W 50ml BAG 50 ML IV SCH (08:05)
[2022-11-04] MEDS: busPIRone 15mg tablet PO SCH ×2 (08:21→19:57)
[2022-11-04] MEDS: gabapentin 300mg capsule PO SCH (08:21)
[2022-11-04] MEDS: pantoprazole 40mg Tablet.DR PO SCH (08:21)
[2022-11-04] MEDS: potassium chloride 8mEq ER tablet PO SCH (08:21)
[2022-11-04] MEDS: amiodarone 200mg tablet PO SCH (08:21)
[2022-11-04] MEDS: gabapentin 400mg capsule PO SCH (08:21)
[2022-11-04] MEDS: metoprolol succinate 25mg (24-HOUR) SR. Tablet PO SCH ×2 (08:22→19:57)
[2022-11-04] MEDS: HYDROcodone/acetaminophen 5mg/325mg tablet PO PRN ×2 (10:33→16:47)
[2022-11-04] MEDS: mag hydrox/Alum hydrox/simeth 30ml oral suspension PO PRN ×2 (10:35→16:46)
[2022-11-04 11:00] VITALS: BP 175/75
[2022-11-04 11:49] LABS: BASOPHILS # (AUTO) 0.1 X10'3 (0-0.2); BASOPHILS % (AUTO) 0.5 % (0-1); EOSINOPHILS # (AUTO) 0.2 X10'3 (0-0.9); EOSINOPHILS % (AUTO) 1.5 % (0-6); HEMATOCRIT 28.1 % (35.0-45.0); HEMOGLOBIN 9.7 g/dl (12.0-16.0); LYMPHOCYTES # (AUTO) 1.2 X10'3 (1.1-4.8); LYMPHOCYTES % (AUTO) 11.3 % (21-51); MEAN CORPUSCULAR HEMOGLOBIN 32.3 PG (27.0-31.0); MEAN CORPUSCULAR HGB CONC 34.4 g/dL (33.0-36.5); MEAN CORPUSCULAR VOLUME 93.9 FL (78-98); MEAN PLATELET VOLUME 7.6 FL (7.4-10.4); MONOCYTES # (AUTO) 0.6 X10'3 (0-0.9); MONOCYTES % (AUTO) 6.1 % (2-12); NEUTROPHILS # (AUTO) 8.4 X10'3 (1.8-7.7); NEUTROPHILS % (AUTO) 80.6 % (42-75); PLATELET COUNT 185 X10'3 (140-440); RED BLOOD COUNT 2.99 X10'6 (4.20-5.60); RED CELL DISTRIBUTION WIDTH 14.7 % (11.5-14.5); WHITE BLOOD COUNT 10.4 X10'3 (4.5-11.0)
[2022-11-04 12:04] LABS: ALANINE AMINOTRANSFERASE 65 U/L (12-78); ALBUMIN 2.7 G/DL (3.4-5.0); ALBUMIN/GLOBULIN RATIO 0.9 (1.1-1.5); ALKALINE PHOSPHATASE 151 IU/L (46-116); ANION GAP 5 (8-16); ASPARTATE AMINO TRANSFERASE 23 U/L (10-37); BILIRUBIN,TOTAL 0.4 MG/DL (0.1-1.0); BLOOD UREA NITROGEN 14 MG/DL (7-18); BUN/CREATININE RATIO 12.6 (10.0-20.0); CALCIUM 8.5 MG/DL (8.5-10.1); CHLORIDE 107 MMOL/L (99-107); CREATININE 1.11 MG/DL (0.40-0.90); GLUCOSE 110 MG/DL (70-104); POTASSIUM 3.6 MMOL/L (3.5-5.1); SODIUM 142 MMOL/L (135-145); TOTAL CARBON DIOXIDE 29.8 MMOL/L (24-32); TOTAL PROTEIN 5.6 G/DL (6.4-8.2); eGFR 49 ML/MIN
[2022-11-04 15:00] VITALS: BP 166/86
[2022-11-04] MEDS: sucralfate 1 gm tablet PO SCH ×2 (16:47→20:03)
[2022-11-04 18:00] VITALS: BP_SYST 142; BP_SYST 167; BP_DIAS 68; BP_DIAS 73
--- NOTE | 2022-11-04 18:27 | NUR ---
Problems reprioritized. Patient report given, questions answered & plan of care reviewed with Olive GRANT.
[2022-11-04] MEDS: morphine 2 MG/ML inj. syringe IV PRN (19:56)
[2022-11-04] MEDS ORDERED: warfarin 3mg tablet PO ONE (21:00)
[2022-11-04 22:00] VITALS: BP 158/73
[2022-11-04] MEDS ORDERED: hydrALAZINE 20mg/ml inj. IV PRN (22:50)
[2022-11-05] VITALS (8 sets, daily range): BP systolic 118–182; BP diastolic 70–92
[2022-11-05] MEDS: HYDROcodone/acetaminophen 5mg/325mg tablet PO PRN ×4 (01:12→22:24)
[2022-11-05] MEDS: mag hydrox/Alum hydrox/simeth 30ml oral suspension PO PRN (05:58)
--- NOTE | 2022-11-05 06:42 | NUR ---
Problems reprioritized. Patient report given, questions answered & plan of care reviewed with Radha.
--- NOTE | 2022-11-05 06:47 | NUR ---
Patient in room PCU 3013. I have received report from Leydi GRANT and had the opportunity to ask questions and assume patient care.
[2022-11-05] MEDS: sucralfate 1 gm tablet PO SCH ×4 (07:45→20:30)
[2022-11-05] MEDS: K and/or MAG REPLACEMENT MC SCH ×2 (08:00→20:00)
[2022-11-05] MEDS: metoprolol succinate 25mg (24-HOUR) SR. Tablet PO SCH ×2 (08:10→20:30)
[2022-11-05] MEDS: busPIRone 15mg tablet PO SCH ×2 (08:10→20:30)
[2022-11-05] MEDS: docusate sod 100mg capsule PO SCH ×2 (08:11→20:00)
[2022-11-05] MEDS: gabapentin 300mg capsule PO SCH (08:12)
[2022-11-05] MEDS: gabapentin 400mg capsule PO SCH (08:12)
[2022-11-05] MEDS: amiodarone 200mg tablet PO SCH (08:12)
[2022-11-05] MEDS: potassium chloride 8mEq ER tablet PO SCH (08:13)
[2022-11-05] MEDS: amLODIPine 5mg tablet PO SCH (08:13)
[2022-11-05] MEDS: pantoprazole 40mg Tablet.DR PO SCH (08:19)
[2022-11-05 08:25] LABS: BASOPHILS % (AUTO) 0.3 % (0-1); EOSINOPHILS # (AUTO) 0.1 X10'3 (0-0.9); EOSINOPHILS % (AUTO) 1.4 % (0-6); HEMATOCRIT 30.6 % (35.0-45.0); HEMOGLOBIN 10.4 g/dl (12.0-16.0); LYMPHOCYTES % (AUTO) 10.1 % (21-51); MEAN CORPUSCULAR HEMOGLOBIN 32.2 PG (27.0-31.0); MEAN CORPUSCULAR HGB CONC 33.9 g/dL (33.0-36.5); MEAN CORPUSCULAR VOLUME 94.9 FL (78-98); MEAN PLATELET VOLUME 7.4 FL (7.4-10.4); MONOCYTES # (AUTO) 0.5 X10'3 (0-0.9); MONOCYTES % (AUTO) 5.6 % (2-12); NEUTROPHILS % (AUTO) 82.6 % (42-75); PLATELET COUNT 205 X10'3 (140-440); RED BLOOD COUNT 3.22 X10'6 (4.20-5.60); RED CELL DISTRIBUTION WIDTH 14.7 % (11.5-14.5); WHITE BLOOD COUNT 9.7 X10'3 (4.5-11.0)
[2022-11-05 08:55] LABS: ALANINE AMINOTRANSFERASE 47 U/L (12-78); ALBUMIN 2.8 G/DL (3.4-5.0); ALBUMIN/GLOBULIN RATIO 0.9 (1.1-1.5); ALKALINE PHOSPHATASE 147 IU/L (46-116); ANION GAP 6 (8-16); ASPARTATE AMINO TRANSFERASE 18 U/L (10-37); BILIRUBIN,TOTAL 0.5 MG/DL (0.1-1.0); BLOOD UREA NITROGEN 10 MG/DL (7-18); BUN/CREATININE RATIO 10.6 (10.0-20.0); CALCIUM 8.3 MG/DL (8.5-10.1); CHLORIDE 106 MMOL/L (99-107); CREATININE 0.94 MG/DL (0.40-0.90); GLUCOSE 130 MG/DL (70-104); POTASSIUM 3.3 MMOL/L (3.5-5.1); SODIUM 140 MMOL/L (135-145); TOTAL CARBON DIOXIDE 28.4 MMOL/L (24-32); TOTAL PROTEIN 5.8 G/DL (6.4-8.2); eGFR 59 ML/MIN
[2022-11-05] MEDS: potassium Cl 20 mEq SR tablet PO PRN ×3 (09:26→20:30)
--- NOTE | 2022-11-05 10:55 | NUR ---
Dr. Callahan ordered a abd US and US called and requested that patient is NPO and they can do the US this afternoon around [id number].
[2022-11-05] MEDS ORDERED: levoFLOXACIN 500mg tablet PO SCH (11:00)
--- NOTE | 2022-11-05 14:00 | NUR ---
Reassessment: Pt continues on a full liquid diet, documented with average 72% PO intake since dinner 11/02 which meets 92% estimated energy needs and 41% estimated protein needs. Recommend Ensure High Protein TID to assist with meeting estimated nutrient needs, to be sent pending physician approval in EMR. LBM 11/05 per EMR. Will continue to follow closely and monitor need for further nutrition intervention. Recommendations: 1) Resume regular/lactose free diet as medically indicated 2) Ensure High Protein TID, pending physician approval in EMR 3) Bowel care per rx; consider antidiarrheal and/or probiotic if diarrhea continues 4) Weekly scaled weights Addendum: 11/05/22 at [address] Amended: Links added.
[2022-11-05] MEDS ORDERED: potassium Cl 20 mEq SR tablet PO PRN (14:50)
--- NOTE | 2022-11-05 17:13 | NUR ---
[place] documentation: I have reviewed and agree with all interventions, assessments performed and documented by Kelsey MADISON. [place] Medication Administration: For this medication-pass time frame, all medication were reviewed, dispensed, administered and documented per hospital policy by Kelsey MADISON.
--- NOTE | 2022-11-05 17:53 | NUR ---
[place] documentation: I have reviewed and agree with all interventions, assessments performed and documented by NOEMI DOMINGUEZ LVN .
--- NOTE | 2022-11-05 18:00 | NUR ---
Problems reprioritized. Patient report given, questions answered & plan of care reviewed with Yuki MADISON.
--- NOTE | 2022-11-05 18:00 | NUR ---
Patient in room PCU 3013. I have received report from Darcy MADISON and had the opportunity to ask questions and assume patient care.
--- NOTE | 2022-11-05 20:45 | NUR ---
STORE CLERK documentation: I have reviewed and agree with all interventions, assessments performed and documented by .
[2022-11-06] MEDS: ondansetron 4mg rapidly disintigrating tab PO PRN (02:30)
--- NOTE | 2022-11-06 03:12 | NUR ---
gave report to Alyssa GRANT
[2022-11-06] MEDS: HYDROcodone/acetaminophen 5mg/325mg tablet PO PRN ×2 (04:04→12:12)
[2022-11-06 06:00] VITALS: BP 180/82
--- NOTE | 2022-11-06 06:43 | NUR ---
Patient in room PCU 3013. I have received report from Alyssa GRANT and had the opportunity to ask questions and assume patient care.
[2022-11-06 07:16] LABS: ALANINE AMINOTRANSFERASE 39 U/L (12-78); ALBUMIN 2.8 G/DL (3.4-5.0); ALBUMIN/GLOBULIN RATIO 0.9 (1.1-1.5); ALKALINE PHOSPHATASE 147 IU/L (46-116); ANION GAP 3 (8-16); ASPARTATE AMINO TRANSFERASE 17 U/L (10-37); BILIRUBIN,TOTAL 0.6 MG/DL (0.1-1.0); BLOOD UREA NITROGEN 6 MG/DL (7-18); BUN/CREATININE RATIO 6.4 (10.0-20.0); CALCIUM 8.9 MG/DL (8.5-10.1); CHLORIDE 106 MMOL/L (99-107); CREATININE 0.94 MG/DL (0.40-0.90); GLUCOSE 106 MG/DL (70-104); SODIUM 141 MMOL/L (135-145); TOTAL CARBON DIOXIDE 31.8 MMOL/L (24-32); eGFR 59 ML/MIN
[2022-11-06 07:20] LABS: BASOPHILS % (AUTO) 0.5 % (0-1); EOSINOPHILS # (AUTO) 0.1 X10'3 (0-0.9); EOSINOPHILS % (AUTO) 1.7 % (0-6); HEMATOCRIT 31.2 % (35.0-45.0); HEMOGLOBIN 10.6 g/dl (12.0-16.0); LYMPHOCYTES % (AUTO) 11.4 % (21-51); MEAN CORPUSCULAR HEMOGLOBIN 32.1 PG (27.0-31.0); MEAN CORPUSCULAR VOLUME 94.5 FL (78-98); MEAN PLATELET VOLUME 7.4 FL (7.4-10.4); MONOCYTES # (AUTO) 0.5 X10'3 (0-0.9); MONOCYTES % (AUTO) 5.9 % (2-12); NEUTROPHILS # (AUTO) 7.2 X10'3 (1.8-7.7); NEUTROPHILS % (AUTO) 80.5 % (42-75); PLATELET COUNT 230 X10'3 (140-440); RED CELL DISTRIBUTION WIDTH 14.8 % (11.5-14.5); WHITE BLOOD COUNT 8.9 X10'3 (4.5-11.0)
[2022-11-06] MEDS: K and/or MAG REPLACEMENT MC SCH (08:00)
[2022-11-06] MEDS: docusate sod 100mg capsule PO SCH (08:00)
[2022-11-06] MEDS: potassium chloride 8mEq ER tablet PO SCH (08:02)
[2022-11-06] MEDS: sucralfate 1 gm tablet PO SCH ×2 (08:02→11:56)
[2022-11-06] MEDS: pantoprazole 40mg Tablet.DR PO SCH (08:03)
[2022-11-06] MEDS: amiodarone 200mg tablet PO SCH (08:03)
[2022-11-06] MEDS: gabapentin 300mg capsule PO SCH (08:03)
[2022-11-06] MEDS: gabapentin 400mg capsule PO SCH (08:03)
[2022-11-06] MEDS: busPIRone 15mg tablet PO SCH (08:03)
[2022-11-06] MEDS: metoprolol succinate 25mg (24-HOUR) SR. Tablet PO SCH (08:04)
[2022-11-06] MEDS: amLODIPine 5mg tablet PO SCH (08:05)
[2022-11-06 11:00] VITALS: BP 153/81
[2022-11-06] MEDS ORDERED: levoFLOXACIN 250mg tablet PO SCH (11:00)
[2022-11-06] MEDS ORDERED: LEVO-65 PO (12:16)
[2022-11-06] MEDS ORDERED: PANT40TA54 PO (12:16)
[2022-11-06] MEDS ORDERED: AMLO5TAB16 PO (12:16)
[2022-11-06] MEDS ORDERED: SUCR1TAB34 PO (12:18)
--- NOTE | 2022-11-06 14:30 | NUR ---
All verbal and written instructions provided to patient. All questions answered. PIV discontinued. Telebox discontinued. Provided lengthy instruction on discharge medication and patient instructions r/t admitting diagnosis. Pt verbalized understanding on all teaching. Pt brother is picking patient up in [place]. Pt has belongings in safe which will be picked up in [facility]. Pt collected all her belongings. Addendum: 11/06/22 at 1536 by Inder Araiza LVN, LVN Amended: Links added.
== END 2022-11-06 14:50 | disposition home or self-care (01) | DRG 871 ==
LOC: ER 04:27 → UNDOADMIN 08:50 → ED HOLD 08:50 → CANBEDREQ 09:53 → ED HOLD 09:54 → ICU 2S 10:50 → ORTHO 4S 10-31 07:38 → PCU 3S 11-01 05:13
PROVIDERS: ADMIT Internal Medicine; ATTEND Internal Medicine
PROC: 05HY33Z Insertion of Infusion Device into Upper Vein, Percutaneous Approach (ICD-10-PCS; 2022-10-29)
PROC: 0DB78ZX Excision of Stomach, Pylorus, Via Natural or Artificial Opening Endoscopic, Diagnostic (ICD-10-PCS; principal; 2022-11-03)
DX: A41.51 Sepsis due to Escherichia coli [E. coli] (principal); N17.0 Acute kidney failure with tubular necrosis; R65.21 Severe sepsis with septic shock; D68.9 Coagulation defect, unspecified; N10 Acute pyelonephritis; K92.1 Melena; B96.20 Unspecified Escherichia coli [E. coli] as the cause of diseases classified elsewhere; E78.5 Hyperlipidemia, unspecified; E87.6 Hypokalemia; Z96.652 Presence of left artificial knee joint; E86.0 Dehydration; F41.9 Anxiety disorder, unspecified; G57.92 Unspecified mononeuropathy of left lower limb; D69.6 Thrombocytopenia, unspecified; R09.02 Hypoxemia; E83.41 Hypermagnesemia; F12.90 Cannabis use, unspecified, uncomplicated; G89.29 Other chronic pain; M54.50 Low back pain, unspecified; R63.30 Feeding difficulties, unspecified; R79.89 Other specified abnormal findings of blood chemistry; E87.70 Fluid overload, unspecified; I10 Essential (primary) hypertension; I48.91 Unspecified atrial fibrillation; K29.70 Gastritis, unspecified, without bleeding; Z79.01 Long term (current) use of anticoagulants; Z83.3 Family history of diabetes mellitus; Z88.6 Allergy status to analgesic agent; Z90.49 Acquired absence of other specified parts of digestive tract; Z90.710 Acquired absence of both cervix and uterus; Z95.0 Presence of cardiac pacemaker; Z79.899 Other long term (current) drug therapy; Z87.891 Personal history of nicotine dependence
CPT/HCPCS: 36415; 43239; 71045; 74176; 76700; 80053; 81001; 82272; 83605; 83690; 83735; 83880; 84132; 84145; 84439; 84443; 84484; 85008; 85025; 85610; 85730; 86885; 86900; 86901; 87040; 87077; 87081; 87088; 87186; 88305; 93005; 93975; 97110; 97116; 97161; 97530; 99152; 99285; A4615; A4620; A6258; C1751; C9113; G0378; J0360; J0696; J1940; J2250; J2270; J2405; J2543; J3010; J3430; J3480; J3490; J7030; J7042; P9045; P9047

== ENCOUNTER 2023-10-01 08:55 | Emergency (ER) | payer MEDICARE, MEDICAID ==
[~2023-10-01] VITALS: Ht 147.3 cm; Wt 68.8 kg
[~2023-10-01 08:55] MED LIST changes: +ALBU18HF2 PO; +AMI200T PO; -AMLO2.5T2 PO; -AREDS; -ATOR40TA PO; -BLAC200C4 PO; +BUSP15TA3 PO; -BUSP5TAB3 PO; +CHOL500050 PO; -DICL100G15 TOP; -DIPH-518 PO; -DOXY25PO2 PO; +GABA300C PO; +HYDR-3965 PO; +LEVO-65 PO; -LORA0.5T PO; +LOSA50TA64 PO; +METO-384 PO; +MULT-1085 PO; -POTA10CA45 PO; +ROSU20TA73 PO; -TRIA1TAB3 PO; +WARF-55 PO; +WARF3TAB56 PO; -[UNRECOGNIZED DRUG - CODE] PO; -[UNRECOGNIZED DRUG - OTHER]
[2023-10-01 08:58] VITALS: TEMP 98.1
[2023-10-01 09:47] LABS: BILIRUBIN,URINE NEGATIVE (Neg); CLARITY,URINE CLEAR (Clear); COLOR,URINE YELLOW (Yellow); GLUCOSE, URINE NEGATIVE (Neg); KETONES,URINE NEGATIVE (Neg); LEUKOCYTE ESTERASE ,URINE NEGATIVE (Neg); NITRITES, URINE NEGATIVE (Neg); OCCULT BLOOD,URINE NEGATIVE (Neg); PROTEIN,URINE NEGATIVE (Neg); UROBILINOGEN,URINE 0.2 E.U/dL (0.2-1.0)
[2023-10-01 09:55] LABS: UA COLLECTION TYPE CLN CATCH MIDSTREAM
[2023-10-01 10:51] VITALS: BP 146/67; PULSE 60; O2SAT 95
[2023-10-01 10:52] VITALS: RESP 16
[2023-10-01 11:24] LABS: BASOPHILS % (AUTO) 0.6 % (0-1); EOSINOPHILS # (AUTO) 0.2 X10'3 (0-0.9); EOSINOPHILS % (AUTO) 3.3 % (0-6); HEMATOCRIT 37.7 % (35.0-45.0); HEMOGLOBIN 12.8 g/dl (12.0-16.0); LYMPHOCYTES # (AUTO) 1.7 X10'3 (1.1-4.8); LYMPHOCYTES % (AUTO) 24.2 % (21-51); MEAN CORPUSCULAR HEMOGLOBIN 32.2 PG (27.0-31.0); MEAN CORPUSCULAR HGB CONC 33.8 g/dL (33.0-36.5); MEAN CORPUSCULAR VOLUME 95.1 FL (78-98); MEAN PLATELET VOLUME 7.2 FL (7.4-10.4); MONOCYTES # (AUTO) 0.4 X10'3 (0-0.9); MONOCYTES % (AUTO) 5.9 % (2-12); NEUTROPHILS # (AUTO) 4.7 X10'3 (1.8-7.7); PLATELET COUNT 142 X10'3 (140-440); RED BLOOD COUNT 3.97 X10'6 (4.20-5.60); RED CELL DISTRIBUTION WIDTH 13.2 % (11.5-14.5); WHITE BLOOD COUNT 7.1 X10'3 (4.5-11.0)
[2023-10-01 11:44] LABS: ALANINE AMINOTRANSFERASE 25 U/L (12-78); ALBUMIN 3.6 G/DL (3.4-5.0); ALBUMIN/GLOBULIN RATIO 1.1 (1.1-1.5); ALKALINE PHOSPHATASE 136 IU/L (46-116); ANION GAP 5 (8-16); ASPARTATE AMINO TRANSFERASE 25 U/L (10-37); BILIRUBIN,TOTAL 0.6 MG/DL (0.1-1.0); BLOOD UREA NITROGEN 14 MG/DL (7-18); BUN/CREATININE RATIO 15.9 (10.0-20.0); CALCIUM 9.4 MG/DL (8.5-10.1); CHLORIDE 104 MMOL/L (99-107); CREATININE 0.88 MG/DL (0.40-0.90); GLUCOSE 112 MG/DL (70-104); POTASSIUM 4.2 MMOL/L (3.5-5.1); SODIUM 140 MMOL/L (135-145); TOTAL CARBON DIOXIDE 31.2 MMOL/L (24-32); TOTAL PROTEIN 6.8 G/DL (6.4-8.2); eCRCL 40 ML/MIN; eGFR 64 ML/MIN
[2023-10-01 11:52] LABS: LIPASE 18 U/L (16-77); PRO BRAIN NATRIURETIC PEPTIDE 1104 PG/ML (0-125)
[2023-10-01] MEDS ORDERED: ONDA4TAB12 PO (12:02)
[2023-10-01] MEDS: ondansetron 4mg rapidly disintigrating tab PO ONE (12:20)
== END 2023-10-01 12:28 | disposition home or self-care (01) ==
LOC: ER 08:56
DX: R11.2 Nausea with vomiting, unspecified (principal); R19.7 Diarrhea, unspecified; I48.91 Unspecified atrial fibrillation; G89.29 Other chronic pain; M54.9 Dorsalgia, unspecified; Z90.710 Acquired absence of both cervix and uterus; Z90.49 Acquired absence of other specified parts of digestive tract; Z95.0 Presence of cardiac pacemaker; Z88.8 Allergy status to other drugs, medicaments and biological substances
CPT/HCPCS: 36415; 71045; 80053; 81003; 83690; 83880; 84484; 85025; 99284

== ENCOUNTER 2024-04-14 09:16 | Emergency (ER) | payer MEDICARE, MEDICAID ==
[~2024-04-14] VITALS: Ht 160 cm; Wt 77.3 kg
[~2024-04-14 09:16] MED LIST changes: -ALBU18HF2 PO; +CYCL1DRO EACHEYE; -LEVO-65 PO; +MAGN400T39 PO; -MELATONIN10 MG PO; +OMEG1CAP61 PO; +OSC500T PO; +PRED20TA PO; +RIVA20TA PO; -SUCR1TAB PO; +VANC25SO PO; -WARF-55 PO; -WARF3TAB56 PO
[2024-04-14 09:18] VITALS: BP 122/92; PULSE 72; TEMP 97.5; O2SAT 99
[2024-04-14 10:42] VITALS: RESP 16
[2024-04-14] MEDS: HYDROcodone/acetaminophen 5mg/325mg tablet PO ONE (10:42)
== END 2024-04-14 11:10 | disposition home or self-care (01) ==
LOC: ER 09:16
DX: M79.662 Pain in left lower leg (principal); I48.91 Unspecified atrial fibrillation; G89.29 Other chronic pain; Z95.0 Presence of cardiac pacemaker; Z88.6 Allergy status to analgesic agent; Z88.8 Allergy status to other drugs, medicaments and biological substances; Z79.899 Other long term (current) drug therapy; Z90.49 Acquired absence of other specified parts of digestive tract; Z90.710 Acquired absence of both cervix and uterus
CPT/HCPCS: 73610; 73630; 99284

== ENCOUNTER 2024-04-28 15:58 | Emergency (ER) | payer MEDICARE, MEDICAID ==
[~2024-04-28] VITALS: Ht 147.3 cm; Wt 69.9 kg
[~2024-04-28 15:58] MED LIST changes: -ROSU20TA73 PO; +ROSU20TA98 PO
[2024-04-28 16:58] LABS: BILIRUBIN,URINE NEGATIVE (Neg); CLARITY,URINE CLEAR (Clear); COLOR,URINE YELLOW (Yellow); GLUCOSE, URINE NEGATIVE (Neg); KETONES,URINE NEGATIVE (Neg); LEUKOCYTE ESTERASE ,URINE NEGATIVE (Neg); NITRITES, URINE NEGATIVE (Neg); OCCULT BLOOD,URINE TRACE-INTACT (Neg); PROTEIN,URINE NEGATIVE (Neg); UROBILINOGEN,URINE 0.2 E.U/dL (0.2-1.0)
[2024-04-28 17:20] LABS: UA COLLECTION TYPE CLN CATCH MIDSTREAM
[2024-04-28 17:26] LABS: BACTERIA,URINE NONE SEEN /HPF (Neg); MUCUS STRANDS NONE SEEN /LPF (Neg); RBC,URINE 0-2 /HPF (0-2); SQUAMOUS EPITHELIAL CELL,UR NONE SEEN /LPF (FEW); WBC,URINE 0-4 /HPF (0-4)
[2024-04-28 17:47] LABS: BASOPHILS % (AUTO) 0.6 % (0-1); EOSINOPHILS # (AUTO) 0.1 X10'3 (0-0.9); EOSINOPHILS % (AUTO) 1.8 % (0-6); HEMATOCRIT 38.7 % (35.0-45.0); LYMPHOCYTES % (AUTO) 29.4 % (21-51); MEAN CORPUSCULAR HEMOGLOBIN 31.9 PG (27.0-31.0); MEAN CORPUSCULAR HGB CONC 33.7 g/dL (33.0-36.5); MEAN CORPUSCULAR VOLUME 94.7 FL (78-98); MEAN PLATELET VOLUME 7.3 FL (7.4-10.4); MONOCYTES # (AUTO) 0.5 X10'3 (0-0.9); MONOCYTES % (AUTO) 6.7 % (2-12); NEUTROPHILS # (AUTO) 4.2 X10'3 (1.8-7.7); NEUTROPHILS % (AUTO) 61.5 % (42-75); PLATELET COUNT 137 X10'3 (140-440); RED BLOOD COUNT 4.09 X10'6 (4.20-5.60); RED CELL DISTRIBUTION WIDTH 13.7 % (11.5-14.5); WHITE BLOOD COUNT 6.9 X10'3 (4.5-11.0)
[2024-04-28 17:56] LABS: APTT 45 SECONDS (22-32); INR 1.9 INR; PROTHROMBIN TIME 18.8 SECONDS (9.0-12.0)
[2024-04-28] MEDS: HYDROmorphone 1 mg/ml syringe IV ONE (18:27)
[2024-04-28 19:57] LABS: ALANINE AMINOTRANSFERASE 19 U/L (12-78); ALBUMIN/GLOBULIN RATIO 1.4 (1.1-1.5); ALKALINE PHOSPHATASE 107 IU/L (46-116); ANION GAP 9 (8-16); ASPARTATE AMINO TRANSFERASE 24 U/L (10-37); BILIRUBIN,TOTAL 0.9 MG/DL (0.1-1.0); BLOOD UREA NITROGEN 11 MG/DL (7-18); BUN/CREATININE RATIO 13.1 (10.0-20.0); CALCIUM 8.8 MG/DL (8.5-10.1); CHLORIDE 103 MMOL/L (99-107); CREATININE 0.84 MG/DL (0.40-0.90); GLUCOSE 105 MG/DL (70-104); SODIUM 140 MMOL/L (135-145); TOTAL CARBON DIOXIDE 28.5 MMOL/L (24-32); TOTAL PROTEIN 6.8 G/DL (6.4-8.2); eCRCL 41 ML/MIN; eGFR 67 ML/MIN
[2024-04-28 21:17] VITALS: BP 166/94; PULSE 70; RESP 16; TEMP 98.6; O2SAT 97
[2024-04-29] MEDS ORDERED: pantoprazole 40 MG vial IV SCH (08:00)
== END 2024-04-28 21:22 | disposition home or self-care (01) ==
LOC: ER 15:59
DX: R10.13 Epigastric pain (principal); R19.7 Diarrhea, unspecified; I48.91 Unspecified atrial fibrillation; F12.90 Cannabis use, unspecified, uncomplicated; G89.29 Other chronic pain; M54.9 Dorsalgia, unspecified; Z90.710 Acquired absence of both cervix and uterus; Z90.49 Acquired absence of other specified parts of digestive tract; Z95.0 Presence of cardiac pacemaker; Z88.8 Allergy status to other drugs, medicaments and biological substances; Z88.6 Allergy status to analgesic agent; Z79.899 Other long term (current) drug therapy
CPT/HCPCS: 36415; 71045; 80053; 81001; 84484; 85025; 85610; 85730; 93005; 96374; 99285; J1171

== ENCOUNTER 2024-05-02 17:58 | Emergency (ER) | payer MEDICARE, MEDICAID ==
[~2024-05-02] VITALS: Ht 147.3 cm; Wt 72.7 kg
[2024-05-02 18:26] VITALS: TEMP 99.1
[2024-05-02 19:03] LABS: BASOPHILS % (AUTO) 0.6 % (0-1); EOSINOPHILS # (AUTO) 0.2 X10'3 (0-0.9); EOSINOPHILS % (AUTO) 3.1 % (0-6); HEMATOCRIT 38.1 % (35.0-45.0); HEMOGLOBIN 12.9 g/dl (12.0-16.0); LYMPHOCYTES # (AUTO) 1.8 X10'3 (1.1-4.8); LYMPHOCYTES % (AUTO) 27.3 % (21-51); MEAN CORPUSCULAR HEMOGLOBIN 32.4 PG (27.0-31.0); MEAN CORPUSCULAR HGB CONC 33.9 g/dL (33.0-36.5); MEAN CORPUSCULAR VOLUME 95.5 FL (78-98); MEAN PLATELET VOLUME 7.2 FL (7.4-10.4); MONOCYTES # (AUTO) 0.6 X10'3 (0-0.9); MONOCYTES % (AUTO) 8.2 % (2-12); NEUTROPHILS # (AUTO) 4.1 X10'3 (1.8-7.7); NEUTROPHILS % (AUTO) 60.8 % (42-75); PLATELET COUNT 152 X10'3 (140-440); RED BLOOD COUNT 3.99 X10'6 (4.20-5.60); RED CELL DISTRIBUTION WIDTH 13.5 % (11.5-14.5); WHITE BLOOD COUNT 6.7 X10'3 (4.5-11.0)
[2024-05-02 19:24] LABS: ALANINE AMINOTRANSFERASE 25 U/L (12-78); ALBUMIN/GLOBULIN RATIO 1.5 (1.1-1.5); ALKALINE PHOSPHATASE 114 IU/L (46-116); ANION GAP 6 (8-16); ASPARTATE AMINO TRANSFERASE 21 U/L (10-37); BILIRUBIN,TOTAL 0.8 MG/DL (0.1-1.0); BLOOD UREA NITROGEN 15 MG/DL (7-18); CALCIUM 9.1 MG/DL (8.5-10.1); CHLORIDE 106 MMOL/L (99-107); CREATININE 0.88 MG/DL (0.40-0.90); GLUCOSE 107 MG/DL (70-104); LIPASE 35 U/L (16-77); POTASSIUM 4.2 MMOL/L (3.5-5.1); SODIUM 142 MMOL/L (135-145); TOTAL CARBON DIOXIDE 29.9 MMOL/L (24-32); TOTAL PROTEIN 6.7 G/DL (6.4-8.2); eCRCL 40 ML/MIN; eGFR 64 ML/MIN
[2024-05-02 20:11] LABS: BILIRUBIN,URINE NEGATIVE (Neg); CLARITY,URINE CLEAR (Clear); COLOR,URINE YELLOW (Yellow); GLUCOSE, URINE NEGATIVE (Neg); KETONES,URINE NEGATIVE (Neg); LEUKOCYTE ESTERASE ,URINE TRACE (Neg); NITRITES, URINE NEGATIVE (Neg); OCCULT BLOOD,URINE NEGATIVE (Neg); PROTEIN,URINE NEGATIVE (Neg); UROBILINOGEN,URINE 0.2 E.U/dL (0.2-1.0)
[2024-05-02 20:16] LABS: BACTERIA,URINE FEW /HPF (Neg); RBC,URINE 0-2 /HPF (0-2); SQUAMOUS EPITHELIAL CELL,UR FEW /LPF (FEW); UA COLLECTION TYPE CLN CATCH MIDSTREAM; WBC,URINE 0-4 /HPF (0-4)
[2024-05-02] MEDS: LIDOcaine 2% Viscous 15ml cup MM ONE (22:31)
[2024-05-02] MEDS: mag hydrox/Alum hydrox/simeth 30ml oral suspension PO ONE (22:31)
[2024-05-02] MEDS ORDERED: FAMO10TA41 PO (23:06)
[2024-05-02] MEDS: famotidine/PF 10 mg/ml inj IV ONE (23:36)
[2024-05-02 23:44] VITALS: BP 168/91; PULSE 70; RESP 15; O2SAT 95
== END 2024-05-02 23:48 | disposition home or self-care (01) ==
LOC: ER 17:58
DX: K29.00 Acute gastritis without bleeding (principal); I48.91 Unspecified atrial fibrillation; G89.29 Other chronic pain; F12.90 Cannabis use, unspecified, uncomplicated; Z88.6 Allergy status to analgesic agent; Z79.899 Other long term (current) drug therapy; Z90.710 Acquired absence of both cervix and uterus; Z90.49 Acquired absence of other specified parts of digestive tract; Z95.0 Presence of cardiac pacemaker
CPT/HCPCS: 36415; 80053; 81001; 83690; 85025; 93005; 96374; 99284; J3490

== ENCOUNTER 2024-06-02 07:34 | Emergency (ER) | payer MEDICARE, MEDICAID ==
[~2024-06-02] VITALS: Ht 147.3 cm; Wt 63.4 kg
[~2024-06-02 07:34] MED LIST changes: +FAMO10TA41 PO
[2024-06-02 07:56] VITALS: BP 163/91; PULSE 70; RESP 16; TEMP 98.3; O2SAT 95
== END 2024-06-02 10:46 | disposition left against medical advice (07) ==
LOC: ER 07:34
DX: B00.9 Herpesviral infection, unspecified (principal); Z88.6 Allergy status to analgesic agent; Z53.21 Procedure and treatment not carried out due to patient leaving prior to being seen by health care provider

== ENCOUNTER 2024-07-21 08:48 | Emergency (ER) | payer MEDICARE, MEDICAID ==
[~2024-07-21] VITALS: Ht 147.3 cm; Wt 63.6 kg
[2024-07-21 09:01] VITALS: TEMP 98.1
[2024-07-21] MEDS: metoprolol succinate 25mg (24-HOUR) SR. Tablet PO ONE (10:28)
[2024-07-21] MEDS: losartan 50mg tablet PO ONE (10:28)
[2024-07-21] MEDS: famotidine 20mg tablet PO ONE (11:00)
[2024-07-21] MEDS: LIDOcaine 2% Viscous 15ml cup MM ONE (11:00)
[2024-07-21] MEDS: mag hydrox/Alum hydrox/simeth 30ml oral suspension PO ONE (11:00)
[2024-07-21] MEDS: ondansetron 4mg rapidly disintigrating tab PO ONE (11:00)
[2024-07-21] MEDS ORDERED: FAMO20TA10 PO (12:18)
[2024-07-21 13:04] VITALS: BP 169/99; PULSE 69; RESP 16; O2SAT 96
== END 2024-07-21 13:07 | disposition home or self-care (01) ==
LOC: ER 08:49
DX: K30 Functional dyspepsia (principal); T37.8X5A Adverse effect of other specified systemic anti-infectives and antiparasitics, initial encounter; I48.91 Unspecified atrial fibrillation; F12.90 Cannabis use, unspecified, uncomplicated; Z88.6 Allergy status to analgesic agent; Z90.710 Acquired absence of both cervix and uterus; Z95.0 Presence of cardiac pacemaker; Z98.890 Other specified postprocedural states; Z90.49 Acquired absence of other specified parts of digestive tract; Z79.82 Long term (current) use of aspirin; Y92.89 Other specified places as the place of occurrence of the external cause
CPT/HCPCS: 99285

== ENCOUNTER 2024-07-24 06:29 | Emergency (ER) | payer MEDICARE, MEDICAID ==
[~2024-07-24] VITALS: Ht 157.5 cm; Wt 65.9 kg
[~2024-07-24 06:29] MED LIST changes: +FAMO20TA10 PO
[2024-07-24 07:38] LABS: BASOPHILS % (AUTO) 0.6 % (0-1); EOSINOPHILS # (AUTO) 0.2 X10'3 (0-0.9); EOSINOPHILS % (AUTO) 2.4 % (0-6); HEMATOCRIT 41.1 % (35.0-45.0); HEMOGLOBIN 14.1 g/dl (12.0-16.0); LYMPHOCYTES % (AUTO) 24.6 % (21-51); MEAN CORPUSCULAR HEMOGLOBIN 32.9 PG (27.0-31.0); MEAN CORPUSCULAR HGB CONC 34.3 g/dL (33.0-36.5); MEAN PLATELET VOLUME 7.2 FL (7.4-10.4); MONOCYTES # (AUTO) 0.5 X10'3 (0-0.9); MONOCYTES % (AUTO) 6.4 % (2-12); NEUTROPHILS # (AUTO) 5.3 X10'3 (1.8-7.7); PLATELET COUNT 160 X10'3 (140-440); RED BLOOD COUNT 4.28 X10'6 (4.20-5.60); RED CELL DISTRIBUTION WIDTH 14.4 % (11.5-14.5); WHITE BLOOD COUNT 8.1 X10'3 (4.5-11.0)
[2024-07-24 08:06] LABS: ALANINE AMINOTRANSFERASE 33 U/L (12-78); ALBUMIN/GLOBULIN RATIO 1.1 (1.1-1.5); ALKALINE PHOSPHATASE 137 IU/L (46-116); ANION GAP 7 (8-16); ASPARTATE AMINO TRANSFERASE 28 U/L (10-37); BILIRUBIN,TOTAL 0.7 MG/DL (0.1-1.0); BLOOD UREA NITROGEN 16 MG/DL (7-18); BUN/CREATININE RATIO 22.2 (10.0-20.0); CALCIUM 9.1 MG/DL (8.5-10.1); CHLORIDE 101 MMOL/L (99-107); CREATININE 0.72 MG/DL (0.40-0.90); GLUCOSE 125 MG/DL (70-104); LIPASE 24 U/L (16-77); SODIUM 138 MMOL/L (135-145); TOTAL CARBON DIOXIDE 29.8 MMOL/L (24-32); TOTAL PROTEIN 7.5 G/DL (6.4-8.2); eCRCL 59 ML/MIN; eGFR 81 ML/MIN
[2024-07-24] MEDS: metoprolol tartrate 50mg tablet PO ONE (09:17)
[2024-07-24] MEDS: ondansetron 4mg rapidly disintigrating tab PO ONE (09:17)
[2024-07-24] MEDS: losartan 50mg tablet PO ONE (09:17)
[2024-07-24 09:22] LABS: BILIRUBIN,URINE NEGATIVE (Neg); CLARITY,URINE CLEAR (Clear); COLOR,URINE YELLOW (Yellow); GLUCOSE, URINE NEGATIVE (Neg); KETONES,URINE NEGATIVE (Neg); LEUKOCYTE ESTERASE ,URINE NEGATIVE (Neg); NITRITES, URINE NEGATIVE (Neg); OCCULT BLOOD,URINE TRACE-INTACT (Neg); PROTEIN,URINE NEGATIVE (Neg); UROBILINOGEN,URINE 0.2 E.U/dL (0.2-1.0)
[2024-07-24 09:34] LABS: UA COLLECTION TYPE CLN CATCH MIDSTREAM
[2024-07-24 09:35] LABS: BACTERIA,URINE NONE SEEN /HPF (Neg); MUCUS STRANDS FEW /LPF (Neg); RBC,URINE 0-2 /HPF (0-2); SQUAMOUS EPITHELIAL CELL,UR FEW /LPF (FEW); WBC,URINE 0-4 /HPF (0-4)
[2024-07-24] MEDS ORDERED: CLOB15CR11 TOP (10:21)
[2024-07-24] MEDS ORDERED: PROM25TA14 PO (10:21)
[2024-07-24] MEDS ORDERED: LOT1VCR VG (10:21)
[2024-07-24 10:47] VITALS: BP 146/102; PULSE 78; RESP 14; TEMP 97; O2SAT 95
[2024-07-24 16:02] LABS: OCCULT BLOOD STOOL NEGATIVE (Neg)
== END 2024-07-24 10:50 | disposition home or self-care (01) ==
LOC: ER 06:29
DX: L43.8 Other lichen planus (principal); R11.2 Nausea with vomiting, unspecified; I48.91 Unspecified atrial fibrillation; G89.29 Other chronic pain; M54.9 Dorsalgia, unspecified; F12.90 Cannabis use, unspecified, uncomplicated; Z79.899 Other long term (current) drug therapy; Z88.6 Allergy status to analgesic agent; Z88.8 Allergy status to other drugs, medicaments and biological substances; Z90.49 Acquired absence of other specified parts of digestive tract; Z90.710 Acquired absence of both cervix and uterus; Z95.0 Presence of cardiac pacemaker
CPT/HCPCS: 36415; 80053; 81001; 82272; 83690; 85025; 87210; 99284

== ENCOUNTER → 2024-11-17 | Day surgery (SDC) | payer MEDICARE, MEDICAID ==
[2024-11-14 14:21] LABS: BASOPHILS % (AUTO) 0.5 % (0-1); EOSINOPHILS # (AUTO) 0.2 X10'3 (0-0.9); EOSINOPHILS % (AUTO) 2.8 % (0-6); LYMPHOCYTES # (AUTO) 1.8 X10'3 (1.1-4.8); MEAN CORPUSCULAR HEMOGLOBIN 32.3 PG (27.0-31.0); MEAN CORPUSCULAR HGB CONC 33.9 g/dL (33.0-36.5); MEAN CORPUSCULAR VOLUME 95.3 FL (78-98); MEAN PLATELET VOLUME 7.2 FL (7.4-10.4); MONOCYTES # (AUTO) 0.5 X10'3 (0-0.9); MONOCYTES % (AUTO) 7.6 % (2-12); NEUTROPHILS # (AUTO) 3.7 X10'3 (1.8-7.7); NEUTROPHILS % (AUTO) 60.1 % (42-75); PRE OP HEMATOCRIT 38.4 % (35.0-45.0); PRE OP PLATELET COUNT 142 X10'3 (140-440); PRE OP WHITE BLOOD COUNT 6.2 10'3 (4.8-10.8); RED BLOOD COUNT 4.02 X10'6 (4.20-5.60); RED CELL DISTRIBUTION WIDTH 12.9 % (11.5-14.5)
[2024-11-14 14:34] LABS: ALBUMIN 3.8 G/DL (3.4-5.0); ALBUMIN/GLOBULIN RATIO 1.2 (1.1-1.5); ALKALINE PHOSPHATASE 131 IU/L (46-116); BLOOD UREA NITROGEN 22 MG/DL (7-18); BUN/CREATININE RATIO 26.8 (10.0-20.0); CALCIUM 8.9 MG/DL (8.5-10.1); CHLORIDE 106 MMOL/L (99-107); CREATININE 0.82 MG/DL (0.40-0.90); PRE OP ALT 27 U/L (30-65); PRE OP ANION GAP 7 (8-16); PRE OP AST 22 U/L (10-37); PRE OP BILIRUB, TOTAL 0.6 MG/DL (0.0-1.0); PRE OP GLUCOSE 101 MG/DL (70-104); PRE OP POTASSIUM 4.1 MMOL/L (3.4-5.1); PRE OP SODIUM 142 MMOL/L (135-145); TOTAL CARBON DIOXIDE 28.7 MMOL/L (24-32); TOTAL PROTEIN 6.9 G/DL (6.4-8.2); eGFR 69 ML/MIN
[~2024-11-17] VITALS: Ht 147.3 cm; Wt 65.1 kg
[~2024-11-17] MED LIST changes: +AREDS 2 PO; +BUPIVAcaine 2.5mg/ml inj 50ml vial (contains preservative) ONE; +CALC600T14 PO; +CHOL100040 PO; -CHOL500050 PO; -CYCL1DRO EACHEYE; +DOCUMENT DATE & TIME OF BETA-BLOCKER PO ONE; -FAMO10TA41 PO; -FAMO20TA10 PO; -HYDR-3965 PO; -MAGN400T39 PO; -OMEG1CAP61 PO; -OSC500T PO; -PANT-47 PO; +PANT20TA18 PO; -PRED20TA PO; -VANC25SO PO
[2024-11-17] MEDS: ceFAZolin 2gm/dext,iso 50mL 50 ML IV ONE (05:30)
[2024-11-17] MEDS: ringers solution, lacted 1,000 ML IV SCH (09:00)
[2024-11-17] MEDS: famotidine 20mg tablet PO ONE (09:00)
[2024-11-17 09:37] VITALS: BP 197/105; PULSE 71; RESP 16; TEMP 98.4; O2SAT 96
[2024-11-17 09:38] VITALS: BP 197/105; PULSE 71; RESP 16; TEMP 98.4; O2SAT 96
[2024-11-17 09:41] VITALS: RESP 16; O2SAT 96
[2024-11-17 10:24] LABS: BILIRUBIN,URINE NEGATIVE (Neg); CLARITY,URINE CLEAR (Clear); COLOR,URINE YELLOW (Yellow); GLUCOSE, URINE NEGATIVE (Neg); KETONES,URINE TRACE mg/dl (Neg); LEUKOCYTE ESTERASE ,URINE SMALL (Neg); NITRITES, URINE NEGATIVE (Neg); OCCULT BLOOD,URINE TRACE-INTACT (Neg); PROTEIN,URINE NEGATIVE (Neg); UROBILINOGEN,URINE 0.2 E.U/dL (0.2-1.0)
[2024-11-17 10:31] LABS: UA COLLECTION TYPE NON-SPECIFIED
[2024-11-17 10:36] LABS: WBC,URINE 20-30 /HPF (0-4)
[2024-11-17 10:37] LABS: BACTERIA,URINE 1+ /HPF (Neg); MUCUS STRANDS NONE SEEN /LPF (Neg); RBC,URINE 0-2 /HPF (0-2); SQUAMOUS EPITHELIAL CELL,UR MANY /LPF (FEW)
== END | disposition home or self-care (01) ==
LOC: PAS 08:20
PROVIDERS: ATTEND Podiatrist Foot & Ankle Surgery
DX: M20.21 Hallux rigidus, right foot (principal); Z53.8 Procedure and treatment not carried out for other reasons; M20.11 Hallux valgus (acquired), right foot; M19.071 Primary osteoarthritis, right ankle and foot; M19.072 Primary osteoarthritis, left ankle and foot; M17.12 Unilateral primary osteoarthritis, left knee; Z98.890 Other specified postprocedural states; Z79.899 Other long term (current) drug therapy; Z79.82 Long term (current) use of aspirin
CPT/HCPCS: 36415; 80053; 81001; 82948; 85025; J7120; J3490

== ENCOUNTER 2024-11-25 17:36 | Emergency (ER) | payer MEDICARE, MEDICAID ==
[~2024-11-25] VITALS: Ht 157.5 cm; Wt 64.1 kg
[~2024-11-25 17:36] MED LIST changes: -BUPIVAcaine 2.5mg/ml inj 50ml vial (contains preservative) ONE; -DOCUMENT DATE & TIME OF BETA-BLOCKER PO ONE
--- NOTE | 2024-11-25 17:57 | Physician Documentation ---
History of Present Illness ~ General Chief Complaint: General Stated Complaint: HIGH BP Time Seen by MD: 19:15 Primary Medical Doctor: DR. WHITAKER History of Present Illness Initial Comments 69-year-old female with complaints of generally feeling unwell with a chronic yeast infection as well as uncontrolled hypertension currently. Patient is supposed to be on blood pressure medications which he states 1 of her providers as told her to stop taking in the morning and taking it at night. One of her blood pressure medications is losartan. She has not taken any medications for blood pressure today and historically she has been taking them at home with her pressures being in the 160s to 190s systolic. Patient denies any chest pain. Medication Reconciliation Allergies: Coded Allergies: NSAIDS (Non-Steroidal Anti-Inflamma (Verified Adverse Reaction, Unknown, VOMITING, 11/16/24) aspirin (Verified Adverse Reaction, Unknown, SICK TO STOMACH, 11/16/24) Scheduled Amiodarone Hcl (Cordarone), 100 MG PO DAILY, (Reported) Buspirone HCl (Buspirone HCl), 2 TAB PO DAILY, (Reported) Calcium Carbonate (Calcium), 1 TAB PO DAILY, (Reported) Cholecalciferol (Vitamin D3) (Vitamin D3), 2 CAP PO DAILY, (Reported) Gabapentin (Neurontin), 300 MG PO QID, (Reported) Losartan Potassium (Losartan Potassium), 2 TAB PO DAILY, (Reported) Metoprolol Succinate (Metoprolol Succinate), 100 MG PO DAILY, (Reported) Multivitamin (Multi Vitamin Daily), 1 TAB PO DAILY, (Reported) Pantoprazole Sodium (Protonix), 1 TAB PO DAILY, (Reported) Rivaroxaban (Xarelto), 1 TAB PO DAILY, (Reported) Rosuvastatin Calcium (Rosuvastatin Calcium), 1 TAB PO QPM, (Reported) [Areds 2], 2 UNIT PO DAILY, (Reported) Past Medical History Past Medical History: Atrial Fibrillation, Diverticulitis, Chronic Pain, Chronic Back Pain Past Surgical History: appendectomy, hysterectomy, orthopedic surgeries, pacemaker, other Other Past Surgical History: eye surgery Patient History: Autoimmune disorder MOTHER FH: heart disease Maternal grandmother Maternal grandfather Other Past Family History: NONCONTRIBUTORY Alcohol Use: None Drug Use: marijuana Lives In: Home Review of Systems All Other Systems at this time: Reviewed and Negative Cardiovascular: Reports: see HPI Female Genitalia: Reports: see HPI Genitalia Being treated for yeast infection Physical Exam Physical Exam Vital Signs: Temperature: 98.6, Source: Oral, Heart Rate: 70, Respiratory Rate: 17, BP: 202/111, Pulse Oximetry: 97, Weight: 64.090 Oxygen Flow Rate: 0 General Appearance: alert, WD/WN, no apparent distress Respiratory: lungs clear, normal breath sounds, no respiratory distress Chest: no accessory muscle use Cardiovascular: regular rate, rhythm; No: JVD Progress Results/Orders Results/Orders Orders - JOSE RAMON RIDLEY MD Clonidine Tablet (Catapres Tablet) (11/25/24 21:00) Completed Orders - JOSE RAMON RIDLEY MD Wet Prep (11/25/24 20:25) Ua W/Microscopic, Cult If Ind (11/25/24 21:35) Medications Received in ER Medications (Trade) Dose Ordered Sig/[place]ron Route PRN Reason Start Time Stop Time Status Last Admin Dose Admin (Catapres tablet) 0.2 mg TID PO 11/25/24 21:00 11/25/24 21:15 0.2 MG Vital Signs 11/25/24 11/25/24 11/25/24 17:42 19:01 21:18 Temp 98.6 Pulse 70 70 Resp 17 16 16 B/P (MAP) 202/111 191/96 (127) Pulse Ox 97 97 O2 Flow Rate 0 0 Laboratory Tests Test 11/25/24 18:19 11/25/24 21:18 11/25/24 21:35 White Blood Count 8.7 Red Blood Count 4.40 Hemoglobin 14.3 Hematocrit 42.1 Mean Corpuscular Volume 95.6 Mean Corpuscular Hemoglobin 32.5 H Mean Corpuscular Hemoglobin Concent 34.0 Red Cell Distribution Width 12.8 Platelet Count 168 Mean Platelet Volume 7.3 L Neutrophils (%) (Auto) 61.0 Lymphocytes (%) (Auto) 28.7 Monocytes (%) (Auto) 7.6 Eosinophils (%) (Auto) 2.2 Basophils (%) (Auto) 0.5 Neutrophils # (Auto) 5.3 Lymphocytes # (Auto) 2.5 Monocytes # (Auto) 0.7 Eosinophils # (Auto) 0.2 Basophils # (Auto) 0.0 CBC Comment Sodium Level 142 Potassium Level 4.8 Chloride Level 105 Carbon Dioxide Level 29.6 Anion Gap 7 L Blood Urea Nitrogen 17 Creatinine 1.01 H Estimated GFR/1.73 m2 54 BUN/Creatinine Ratio 16.8 Glucose Level 113 H Calcium Level 9.3 Troponin I High Sensitivity 7 8 Pro-B-Type Natriuretic Peptide 1479 H Albumin 4.2 Chemistry Comments Troponin I High Sens Percent Delta 14 Troponin I Hi Sens Absolute Change 1 Urine Specimen Description Other Urine Color Yellow Urine Clarity Clear Urine pH 6.0 Urine Specific [place] <=1.005 Urine Protein Negative Urine Glucose (UA) Negative Urine Ketones Negative Urine Occult Blood Trace-intact Urine Nitrite Negative Urine Bilirubin Negative Urine Urobilinogen 0.2 Urine Leukocyte Esterase Negative Urine RBC 0-2 Urine WBC None seen Urine Squamous Epithelial Cells Few Urine Bacteria None seen Urine Culture Indicated Not ind Volume Urine Centrifuged 10 ml Urine Comment Microbiology Date/Time Source Procedure Growth Status 11/25/24 20:39 Genital Vaginal Wet Prep - Final Complete Departure Disposition: HOME / SELF CARE / HOMELESS Impression: Primary Impression: Essential hypertension Additional Impression: Atrophic vaginitis Additional Impression Text Assumed care of patient from Flash Mosher NP. Patient in with high blood pressure. She did not take her losartan today. Gave 0.2 of clonidine. Patient took her losartan 100 in the ED. blood pressure improved. She has follow up with her doctor in a couple of weeks but she will try to get in sooner and she will keep a log. Patient states she has been getting treated for BV and yeast on and off for the past 6 or 7 months. She states she has only been tested a couple of times otherwise she is just given medications. Currently on day 4 of a vaginal medication for yeast. Wet prep in the ED is negative. Urinalysis is negative. Had a lengthy discussion regarding carbohydrate and sugar intake. She needs to cut back on these medications. Also recommended following up with her miscellaneous machine operator to talk about vaginal estrogen. Discharged home in good condition to return here if new or worsening symptoms prior to follow up. Condition: Stable Discharge Instructions: Atrophic Vaginitis, [id number], Hypertension, Adult, [id number] Additional Instructions: Follow-up with your miscellaneous machine operator to talk about vaginal estrogen. You need to significantly reduce your carbohydrate and simple sugar intake. Follow up with your doctor about your blood pressure and keep a daily log. Return here for new or worsening symptoms prior to follow-up. Referrals: NO PRIMARY CARE PROVIDER (PCP) Education Educated: Patient, Family Educated regarding: diagnosis, treatment, need for follow up Signature Scribe Signature: No scribe Attestation: No scribe FLASH MOSHER NP Nov 25, 2024 17:57 JOSE RAMON RIDLEY MD Nov 25, 2024 22:03
--- NOTE | 2024-11-25 18:05 | ELECTROCARDIOGRAPH REPORT ---
[facility] Test Date: 2024-11-25 Test Time: 18:01:22 Pat Name: DIPESH YANCEY Department: [facility]- Patient ID: [facility]-[id number] Room: Gender: F Associate: : 1955 Requested By: FLASH PERRY Order Number: [id number] Reading MD: Measurements Intervals [place] Rate: 70 P: 0 ME: 168 QRS: 50 QRSD: 100 T: 42 QT: 434 QTc: 469 Interpretive Statements Atrial-paced rhythm Low voltage, precordial leads Baseline wander in lead(s) II,III,aVR,aVL,aVF,V4,V5,V6 Please click the below link to view image of tracing.
[2024-11-25 18:27] LABS: BASOPHILS % (AUTO) 0.5 % (0-1); EOSINOPHILS # (AUTO) 0.2 X10'3 (0-0.9); EOSINOPHILS % (AUTO) 2.2 % (0-6); HEMATOCRIT 42.1 % (35.0-45.0); HEMOGLOBIN 14.3 g/dl (12.0-16.0); LYMPHOCYTES # (AUTO) 2.5 X10'3 (1.1-4.8); LYMPHOCYTES % (AUTO) 28.7 % (21-51); MEAN CORPUSCULAR HEMOGLOBIN 32.5 PG (27.0-31.0); MEAN CORPUSCULAR VOLUME 95.6 FL (78-98); MEAN PLATELET VOLUME 7.3 FL (7.4-10.4); MONOCYTES # (AUTO) 0.7 X10'3 (0-0.9); MONOCYTES % (AUTO) 7.6 % (2-12); NEUTROPHILS # (AUTO) 5.3 X10'3 (1.8-7.7); PLATELET COUNT 168 X10'3 (140-440); RED CELL DISTRIBUTION WIDTH 12.8 % (11.5-14.5); WHITE BLOOD COUNT 8.7 X10'3 (4.5-11.0)
[2024-11-25 18:46] LABS: ALBUMIN 4.2 G/DL (3.4-5.0); ANION GAP 7 (8-16); BLOOD UREA NITROGEN 17 MG/DL (7-18); BUN/CREATININE RATIO 16.8 (10.0-20.0); CALCIUM 9.3 MG/DL (8.5-10.1); CHLORIDE 105 MMOL/L (99-107); CREATININE 1.01 MG/DL (0.40-0.90); GLUCOSE 113 MG/DL (70-104); POTASSIUM 4.8 MMOL/L (3.5-5.1); PRO BRAIN NATRIURETIC PEPTIDE 1479 PG/ML (0-125); SODIUM 142 MMOL/L (135-145); TOTAL CARBON DIOXIDE 29.6 MMOL/L (24-32); eCRCL 42 ML/MIN; eGFR 54 ML/MIN
--- NOTE | 2024-11-25 19:08 | RADIOLOGY REPORT ---
CHEST RADIOGRAPH Indication: CP Technique: Single frontal view of the chest was obtained Comparison: 05/08/2024 FINDINGS: Left chest dual lead cardiac pacing device. Aortic atherosclerotic disease. The cardiac silhouette is unremarkable. The lungs demonstrate no pulmonary airspace consolidation. Th e pulmonary vasculature is unremarkable. There is no pleural effusion.. There is no pneumothorax. IMPRESSION: 1. No pulmonary airspace consolidation.
[2024-11-25] MEDS: cloNIDine 0.1 mg tablet PO SCH (21:15)
[2024-11-25 21:18] VITALS: PULSE 70
[2024-11-25 21:47] LABS: BILIRUBIN,URINE NEGATIVE (Neg); CLARITY,URINE CLEAR (Clear); COLOR,URINE YELLOW (Yellow); GLUCOSE, URINE NEGATIVE (Neg); KETONES,URINE NEGATIVE (Neg); LEUKOCYTE ESTERASE ,URINE NEGATIVE (Neg); NITRITES, URINE NEGATIVE (Neg); OCCULT BLOOD,URINE TRACE-INTACT (Neg); PROTEIN,URINE NEGATIVE (Neg); UROBILINOGEN,URINE 0.2 E.U/dL (0.2-1.0)
[2024-11-25 21:55] LABS: UA COLLECTION TYPE OTHER
[2024-11-25 21:56] LABS: RBC,URINE 0-2 /HPF (0-2); WBC,URINE NONE SEEN /HPF (0-4)
[2024-11-25 21:57] LABS: BACTERIA,URINE NONE SEEN /HPF (Neg); SQUAMOUS EPITHELIAL CELL,UR FEW /LPF (FEW)
[2024-11-25 22:11] VITALS: BP 184/97; RESP 16; TEMP 98.3; O2SAT 97
== END 2024-11-25 22:18 | disposition home or self-care (01) ==
LOC: ER 17:36
DX: I10 Essential (primary) hypertension (principal); N95.2 Postmenopausal atrophic vaginitis; I48.91 Unspecified atrial fibrillation; R06.02 Shortness of breath; F12.90 Cannabis use, unspecified, uncomplicated; Z88.6 Allergy status to analgesic agent; Z90.49 Acquired absence of other specified parts of digestive tract; Z90.710 Acquired absence of both cervix and uterus; Z95.0 Presence of cardiac pacemaker
CPT/HCPCS: 36415; 71045; 80048; 81001; 83880; 84484; 85025; 87210; 93005; 99285

== ENCOUNTER 2024-12-01 17:26 | Emergency (ER) | payer MEDICARE, MEDICAID ==
[~2024-12-01] VITALS: Ht 147.3 cm; Wt 63.6 kg
[2024-12-01 17:34] VITALS: TEMP 98
[2024-12-01 18:44] LABS: BASOPHILS % (AUTO) 0.3 % (0-1); EOSINOPHILS # (AUTO) 0.2 X10'3 (0-0.9); HEMATOCRIT 37.8 % (35.0-45.0); HEMOGLOBIN 12.8 g/dl (12.0-16.0); LYMPHOCYTES # (AUTO) 2.2 X10'3 (1.1-4.8); LYMPHOCYTES % (AUTO) 28.2 % (21-51); MEAN CORPUSCULAR HEMOGLOBIN 32.3 PG (27.0-31.0); MEAN CORPUSCULAR HGB CONC 33.8 g/dL (33.0-36.5); MEAN CORPUSCULAR VOLUME 95.4 FL (78-98); MEAN PLATELET VOLUME 7.5 FL (7.4-10.4); MONOCYTES # (AUTO) 0.6 X10'3 (0-0.9); MONOCYTES % (AUTO) 8.3 % (2-12); NEUTROPHILS # (AUTO) 4.7 X10'3 (1.8-7.7); NEUTROPHILS % (AUTO) 61.2 % (42-75); PLATELET COUNT 153 X10'3 (140-440); RED BLOOD COUNT 3.96 X10'6 (4.20-5.60); RED CELL DISTRIBUTION WIDTH 12.5 % (11.5-14.5); WHITE BLOOD COUNT 7.7 X10'3 (4.5-11.0)
[2024-12-01 18:58] LABS: ALANINE AMINOTRANSFERASE 31 U/L (12-78); ALBUMIN 3.8 G/DL (3.4-5.0); ALBUMIN/GLOBULIN RATIO 1.4 (1.1-1.5); ALKALINE PHOSPHATASE 164 IU/L (46-116); ANION GAP 7 (8-16); ASPARTATE AMINO TRANSFERASE 26 U/L (10-37); BILIRUBIN,TOTAL 0.5 MG/DL (0.1-1.0); BLOOD UREA NITROGEN 20 MG/DL (7-18); BUN/CREATININE RATIO 24.7 (10.0-20.0); CALCIUM 8.6 MG/DL (8.5-10.1); CHLORIDE 106 MMOL/L (99-107); CREATININE 0.81 MG/DL (0.40-0.90); GLUCOSE 110 MG/DL (70-104); LIPASE 28 U/L (16-77); SODIUM 142 MMOL/L (135-145); TOTAL CARBON DIOXIDE 28.8 MMOL/L (24-32); TOTAL PROTEIN 6.5 G/DL (6.4-8.2); eCRCL 42 ML/MIN; eGFR 70 ML/MIN
[2024-12-01 19:18] LABS: BILIRUBIN,URINE NEGATIVE (Neg); CLARITY,URINE CLEAR (Clear); COLOR,URINE STRAW (Yellow); GLUCOSE, URINE NEGATIVE (Neg); KETONES,URINE NEGATIVE (Neg); LEUKOCYTE ESTERASE ,URINE NEGATIVE (Neg); NITRITES, URINE NEGATIVE (Neg); OCCULT BLOOD,URINE TRACE-INTACT (Neg); PROTEIN,URINE NEGATIVE (Neg); UROBILINOGEN,URINE 0.2 E.U/dL (0.2-1.0)
[2024-12-01 19:31] LABS: UA COLLECTION TYPE NON-SPECIFIED
[2024-12-01 19:38] LABS: BACTERIA,URINE FEW /HPF (Neg); MUCUS STRANDS NONE SEEN /LPF (Neg); SQUAMOUS EPITHELIAL CELL,UR FEW /LPF (FEW); WBC,URINE 0-4 /HPF (0-4)
--- NOTE | 2024-12-01 19:52 | Physician Documentation ---
History of Present Illness ~ Chief Complaint: Abdominal Pain Stated Complaint: ABD PAIN Time Seen by MD: 19:50 Primary Medical Doctor: DR. WHITAKER HPI Patient presents to the emergency room with nausea without vomiting, right-sided abdominal pain as well as diarrhea. 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 Taking metoclopramide for her nausea last dose was just prior to calling the ambulance this evening. Denies fevers. No sick contacts. No chest pain Medication Reconciliation Allergies: Coded Allergies: NSAIDS (Non-Steroidal Anti-Inflamma (Verified Adverse Reaction, Unknown, VOMITING, 12/01/24) aspirin (Verified Adverse Reaction, Unknown, SICK TO STOMACH, 12/01/24) Scheduled Amiodarone Hcl (Cordarone), 100 MG PO DAILY, (Reported) Buspirone HCl (Buspirone HCl), 2 TAB PO DAILY, (Reported) Calcium Carbonate (Calcium), 1 TAB PO DAILY, (Reported) Cholecalciferol (Vitamin D3) (Vitamin D3), 2 CAP PO DAILY, (Reported) Gabapentin (Neurontin), 300 MG PO QID, (Reported) Losartan Potassium (Losartan Potassium), 2 TAB PO DAILY, (Reported) Metoprolol Succinate (Metoprolol Succinate), 100 MG PO DAILY, (Reported) Multivitamin (Multi Vitamin Daily), 1 TAB PO DAILY, (Reported) Ondansetron 8mg ODT (Ondansetron Odt), 1 TAB PO Q6H Pantoprazole Sodium (Protonix), 1 TAB PO DAILY, (Reported) Rivaroxaban (Xarelto), 1 TAB PO DAILY, (Reported) Rosuvastatin Calcium (Rosuvastatin Calcium), 1 TAB PO QPM, (Reported) [Areds 2], 2 UNIT PO DAILY, (Reported) Scheduled PRN Hydrocodone Bit/Acetaminophen 5/325 MG ([place] 5/325 MG), 1-2 TAB PO Q4-6 hours PRN for pain Past Medical History Past Medical History: Atrial Fibrillation, Diverticulitis, Chronic Pain, Chronic Back Pain Past Surgical History: appendectomy, hysterectomy, orthopedic surgeries, pacemaker, other Other Past Surgical History: eye surgery Patient History: Autoimmune disorder MOTHER FH: heart disease Maternal grandmother Maternal grandfather Other Past Family History: NONCONTRIBUTORY Alcohol Use: None Drug Use: marijuana Lives In: Home Review of Systems ROS All review of systems negative except as per HPI Physical Exam Vital Signs: Temperature: 98.0, Source: Oral, Heart Rate: 95, Respiratory Rate: 18, BP: 221/86, Pulse Oximetry: 98, Weight: 63.640 Oxygen Flow Rate: 0 Physical Exam General: Patient is awake, alert, oriented x4 in no acute distress Head: Normocephalic and atraumatic. Eyes: Conjunctival normal. EOMI. PERRL. ENT: Mucous membranes moist. Neck: Supple, trachea is midline. Chest: Clear to auscultation bilaterally without rales, rhonchi, or wheezes. There is no accessory muscle use or retractions. Cardiac: RRR without murmurs, gallops, or rubs. Abd: Soft, nondistended, positive Trujillo's and McBurney's. Positive bowel sounds Progress Results/Orders Results/Orders Orders - TOY TARANGO MD Ultrasound Of Abdomen (12/01/24 19:56) Ct Abdomen Pelvis (12/01/24 20:15) Completed Orders - TOY TARANGO MD Ultrasound Of Abdomen (12/01/24 19:56) Ct Abdomen Pelvis (12/01/24 20:15) Normal Saline 1000ml (Sodium Chloride 10 (12/01/24 20:00) Ondansetron Inj. (Zofran 4mg/2ml Vial) (12/01/24 20:00) Morphine 4mg/Ml Inj. (Morphine Inj.) (12/01/24 20:00) Hydralazine Inj. (Apresoline Inj.) (12/01/24 20:00) Troponin (Single) (12/01/24 20:01) Acetaminophen 1,000mg/100ml Iv (Ofirmev (12/01/24 21:45) Prochlorperazine Inj (Compazine Inj) (12/01/24 21:45) Fentanyl/Pf (Fentanyl 0.05 Mg/Ml Syringe (12/01/24 21:50) Oxycodone Immed Release Tablet (Oxy Ir T (12/01/24 21:50) Vital Signs 12/01/24 12/01/24 12/01/24 12/01/24 17:34 18:20 18:34 20:26 Temp 98.0 Pulse 97 95 116 Resp 17 18 18 B/P (MAP) 208/103 221/86 (131) Pulse Ox 97 98 O2 Flow Rate 0 12/01/24 12/01/24 12/01/24 12/01/24 20:28 21:45 22:07 22:08 Pulse 100 Resp 20 18 16 16 B/P (MAP) 130/72 (91) Pulse Ox 98 O2 Flow Rate 0 12/01/24 22:15 Pulse 68 Resp 16 B/P (MAP) 160/73 Pulse Ox 98 Laboratory Tests Test 12/01/24 18:21 12/01/24 18:55 White Blood Count 7.7 Red Blood Count 3.96 L Hemoglobin 12.8 Hematocrit 37.8 Mean Corpuscular Volume 95.4 Mean Corpuscular Hemoglobin 32.3 H Mean Corpuscular Hemoglobin Concent 33.8 Red Cell Distribution Width 12.5 Platelet Count 153 Mean Platelet Volume 7.5 Neutrophils (%) (Auto) 61.2 Lymphocytes (%) (Auto) 28.2 Monocytes (%) (Auto) 8.3 Eosinophils (%) (Auto) 2.0 Basophils (%) (Auto) 0.3 Neutrophils # (Auto) 4.7 Lymphocytes # (Auto) 2.2 Monocytes # (Auto) 0.6 Eosinophils # (Auto) 0.2 Basophils # (Auto) 0.0 CBC Comment Sodium Level 142 Potassium Level 4.0 Chloride Level 106 Carbon Dioxide Level 28.8 Anion Gap 7 L Blood Urea Nitrogen 20 H Creatinine 0.81 Estimated GFR/1.73 m2 70 BUN/Creatinine Ratio 24.7 H Glucose Level 110 H Calcium Level 8.6 Total Bilirubin 0.5 Aspartate Amino Transf (AST/SGOT) 26 Alanine Aminotransferase (ALT/SGPT) 31 Alkaline Phosphatase 164 H Troponin I High Sensitivity 7 Total Protein 6.5 Albumin 3.8 Globulin 2.7 Albumin/Globulin Ratio 1.4 Lipase 28 Chemistry Comments Urine Specimen Description Non-specified Urine Color Straw Urine Clarity Clear Urine pH 6.0 Urine Specific [place] <=1.005 Urine Protein Negative Urine Glucose (UA) Negative Urine Ketones Negative Urine Occult Blood Trace-intact Urine Nitrite Negative Urine Bilirubin Negative Urine Urobilinogen 0.2 Urine Leukocyte Esterase Negative Urine RBC 3-10 Urine WBC 0-4 Urine Squamous Epithelial Cells Few Urine Bacteria Few Urine Mucus None seen Urine Culture Indicated Not ind Volume Urine Centrifuged 10 ml Urine Comment Medical Decision Making Findings Patient presented to the emergency room with nausea vomiting diarrhea and abdominal pain. Differentials include but are not limited to viral syndrome, food poisoning, dehydration, electrolyte disturbances, gastritis, cholecystitis, intra-abdominal infection therefore emergent labs and imaging indicated. Both ultrasound and CT scan were negative. Labs reassuring. Blood pressure greatly improved. Patient continues to have some symptoms however she is ambulatory in the emergency room and I believe will do well on outpatient basis. ER precautions discussed Departure Disposition: HOME / SELF CARE / HOMELESS Impression: Primary Impression: Acute gastroenteritis Condition: Stable Discharge Instructions: Viral Gastroenteritis, Adult Referrals: NO PRIMARY CARE PROVIDER (PCP) Prescriptions Hydrocodone Bit/Acetaminophen 5/325 MG ([place] 5/325 MG) 5 Mg/325 Mg Tablet 1-2 TAB PO Q4-6 hours PRN for pain, #12 TAB Prov: TOY TARANGO MD 12/01/24 Ondansetron 8mg ODT (Ondansetron Odt) 8 Mg Tab.rapdis 1 TAB PO Q6H for nausea/vomiting for 3 Days, #12 TAB 0 Refills Prov: TOY TARANGO MD 12/01/24 Education Educated: Patient Educated regarding: diagnosis, treatment, need for follow up Signature Scribe Signature: No scribe Attestation: The note accurately reflects work and decisions made by me.Toy Tarango MD 12/01/24 21:52 TOY TARANGO MD Dec 01, 2024 19:51
[2024-12-01] MEDS: ondansetron/PF 4mg/2ml inj IV ONE (20:26)
[2024-12-01] MEDS: hydrALAZINE 20mg/ml inj. IV ONE (20:26)
[2024-12-01] MEDS: morphine 4 MG/ML inj SYRINge IV ONE (20:28)
[2024-12-01] MEDS: normal saline 1000ml 1,000 ML IV ONE (20:28)
--- NOTE | 2024-12-01 20:56 | RADIOLOGY REPORT ---
Exam: CT CT ABDOMEN PELVIS History: right sided abd pain Comparison Study: CT CTA ABDOMEN PELVIS on DOS: 03/04/24, CT CT ABDOMEN PELVIS on DOS: 03/03/24, CT ABD OMEN PELVIS on DOS: 11/17/22, CT ABDOMEN PELVIS on DOS: 11/01/22 TECHNIQUE: Multidetector CT of the abdomen and pelvis was performed from lung bases to pubic symphysi s. Imaging was performed without IV contrast. Axial, coronal, and sagittal multiplanar reformats were obtained from the axial data set by the technologist. RADIATION DOSE: DLP 22.5 mGy.cm; CTDI vol 1006.3 cm mGy. Findings: Limited evaluation of the solid organs in the absence of IV contrast. Liver: Unremarkable. Spleen: Unremarkable. Pancreas: Unremarkable. Gallbladder: Unremarkable. Adrenals: Unremarkable Kidneys: Unremarkable. Pelvic Viscera: Status post hysterectomy. Vasculature: Mild atherosclerotic aortoiliac calcifications. Retroperitoneum: Absent Bowel: Diverticulosis without evidence of acute diverticulitis. No bowel obstruction. No CT evidence of appendicitis. Musculoskeletal: Unremarkable. Soft tissues: Unremarkable Lungs: Dependent atelectatic changes. Impression: 1. No acute abdominopelvic abnormality identified. 2. Incidental findings as detailed.
[2024-12-01] MEDS ORDERED: acetaminophen 1,000mg/100ml IV 100 ML IV ONE (21:45)
--- NOTE | 2024-12-01 21:45 | RADIOLOGY REPORT ---
ULTRASOUND ABDOMEN, LIMITED RIGHT UPPER QUADRANT: REASON FOR EXAM: concern for cholecystitis. Right upper quadrant pain. COMPARISON: Right upper quadrant ultrasound 11/16/2022 TECHNIQUE: Real-time sector scans in the transverse and longitudinal planes were obtained through th e right upper quadrant of the abdomen. FINDINGS: The liver is of normal size and contour. The liver parenchyma is diffusely echogenic. The hepatic veins are patent. There is hepatopetal flow in the portal vein. There is no intrahepatic nor extrahepatic biliary ductal dilatation. The common bile duct measures 4 mm. No gallstones or sludg e are identified. There is no gallbladder wall thickening nor pericholecystic fluid. There is a sono graphic Trujillo's sign. The visualized portion of the pancreas is unremarkable. The right kidney measures 9.2 cm. No hydronephrosis or nephrolithiasis is identified. There is no e vidence of right renal mass or cyst. The visualized portions of the abdominal aorta demonstrate no evidence of aneurysmal dilatation. The visualized inferior vena cava is unremarkable. There is no free fluid identified in the right upper quadrant. IMPRESSION: No sonographic evidence of cholelithiasis or cholecystitis. There is a sonographic trujillo's sign. Diffusely echogenic liver parenchyma. This may be secondary to steatosis or another diffuse hepatic process. Correlate clinically and with liver function tests.
[2024-12-01] MEDS ORDERED: HYDR-3965 PO (21:52)
[2024-12-01] MEDS ORDERED: ONDA-245 PO (21:52)
[2024-12-01] MEDS: fentaNYL/PF 50MCG/1 ML 2ML syringe IV ONE (22:07)
[2024-12-01] MEDS: proCHLORperazine 10 MG/2 ml inj IV ONE (22:07)
[2024-12-01] MEDS: oxyCODONE IR 5mg (immed. release) tablet PO ONE (22:08)
[2024-12-01 22:15] VITALS: BP 160/73; PULSE 68; RESP 16; O2SAT 98
== END 2024-12-01 22:26 | disposition home or self-care (01) ==
LOC: ER 17:27
DX: K52.9 Noninfective gastroenteritis and colitis, unspecified (principal); I10 Essential (primary) hypertension; I48.91 Unspecified atrial fibrillation; F12.90 Cannabis use, unspecified, uncomplicated; Z88.6 Allergy status to analgesic agent; Z90.49 Acquired absence of other specified parts of digestive tract; Z90.710 Acquired absence of both cervix and uterus; Z95.0 Presence of cardiac pacemaker
CPT/HCPCS: 36415; 74176; 76700; 80053; 81001; 83690; 84484; 85025; 96361; 96374; 96375; 99285; J0360; J0780; J2270; J2405; J3010; J7030

== ENCOUNTER 2024-12-17 01:26 | Emergency (ER) | payer MEDICARE, MEDICAID ==
[~2024-12-17] VITALS: Ht 147.3 cm; Wt 64.3 kg
[~2024-12-17 01:26] MED LIST changes: +HYDR-3965 PO; +ONDA-245 PO
--- NOTE | 2024-12-17 02:36 | Physician Documentation ---
History of Present Illness Chief Complaint: Abdominal Pain Stated Complaint: STOMACH ACHE Time Seen by MD: 02:18 Primary Medical Doctor: DR. WHITAKER Mode of Arrival: POV, Ambulatory HPI 69-year-old female, history of gastritis, HTN, presenting with upper abdominal pain. She tells me that over the past couple of days she has had severe upper abdominal pain. She tells me is worse in the upper abdomen and left side of the upper abdomen. She reports associated nausea and vomiting. She also has had multiple loose stool. Nothing makes the pain better. She did try antacids and Pepto-Bismol. She does take pantoprazole. She tells me she vomited so hard that she got a bloody nose. No definite blood in the stool or vomit. She has not really been eating because eating makes it worse. She has only been drinking fluids. No fevers or chills. No lower abdominal pain. She tells me that she was seen recently in the ER and had a CT scan of her abdomen and an ultrasound. She does not know what they showed. She also reports a history of hemorrhagic gastritis. Medication Reconciliation Allergies: Coded Allergies: NSAIDS (Non-Steroidal Anti-Inflamma (Verified Adverse Reaction, Unknown, VOMITING, 12/17/24) aspirin (Verified Adverse Reaction, Unknown, SICK TO STOMACH, 12/17/24) Scheduled Amiodarone Hcl (Cordarone), 100 MG PO DAILY, (Reported) Buspirone HCl (Buspirone HCl), 2 TAB PO DAILY, (Reported) Calcium Carbonate (Calcium), 1 TAB PO DAILY, (Reported) Cholecalciferol (Vitamin D3) (Vitamin D3), 2 CAP PO DAILY, (Reported) Gabapentin (Neurontin), 300 MG PO QID, (Reported) Losartan Potassium (Losartan Potassium), 2 TAB PO DAILY, (Reported) Metoprolol Succinate (Metoprolol Succinate), 100 MG PO DAILY, (Reported) Multivitamin (Multi Vitamin Daily), 1 TAB PO DAILY, (Reported) Ondansetron 8mg ODT (Ondansetron Odt), 1 TAB PO Q6H Pantoprazole Sodium (Protonix), 1 TAB PO DAILY, (Reported) Rivaroxaban (Xarelto), 1 TAB PO DAILY, (Reported) Rosuvastatin Calcium (Rosuvastatin Calcium), 1 TAB PO QPM, (Reported) Sucralfate (Sucralfate), 1 TAB PO Q6H [Areds 2], 2 UNIT PO DAILY, (Reported) Scheduled PRN Hydrocodone Bit/Acetaminophen 5/325 MG ([place] 5/325 MG), 1-2 TAB PO Q4-6 hours PRN for pain ONDANSETRON ODT 4mg tablet (Ondansetron Odt), 1 TAB PO Q6H PRN PRN for nausea/vomiting Past Medical History Past Medical History: Atrial Fibrillation, Diverticulitis, Chronic Pain, Chronic Back Pain Past Surgical History: appendectomy, hysterectomy, orthopedic surgeries, pacemaker, other Other Past Surgical History: eye surgery Patient History: Autoimmune disorder MOTHER FH: heart disease Maternal grandmother Maternal grandfather Other Past Family History: NONCONTRIBUTORY Alcohol Use: None Drug Use: marijuana Lives In: Home Review of Systems Constitutional: Denies: fever Gastrointestinal: Reports: abdominal pain, nausea, vomiting, diarrhea Physical Exam Vital Signs: Temperature: 98.0, Source: Oral, Heart Rate: 70, Respiratory Rate: 16, BP: 203/99, Pulse Oximetry: 100, Weight: 64.350 Oxygen Flow Rate: 0 Physical Exam General: This is a uncomfortable appearing middle-aged female, not in acute distress HEENT: Atraumatic, oropharynx appears dry Heart: Regular rate and rhythm, normal-appearing peripheral perfusion Lungs: normal work of breathing, normal oxygen saturation on room air Abdomen: Soft, nondistended. Significant tenderness to palpation in the epigastric region and left upper quadrant. No significant tenderness to palpation across the lower abdomen or in the right upper quadrant. Extremities: Warm and well-perfused Neuro: Alert and oriented Psychiatric: Appears tired but is cooperative with exam Progress Results/Orders Results/Orders Orders - GREG MCKEON MD Urinalysis, Cult If Indicated (12/17/24 01:38) Cbc/Diff (12/17/24 01:38) BMP (12/17/24 01:38) Lipase (12/17/24 01:38) CMP (12/17/24 01:38) Straight Cath For Urine Sample (12/17/24 01:38) Occult Bld Stool (12/17/24 01:38) Type And Screen (12/17/24 01:38) Morphine 4mg/Ml Inj. (Morphine Inj.) (12/17/24 02:35) Ondansetron Inj. (Zofran 4mg/2ml Vial) (12/17/24 02:35) Pantoprazole 40mg Iv (Protonix 40mg Iv) (12/17/24 02:35) Vital Signs 12/17/24 12/17/24 01:31 02:16 Temp 98.0 Pulse 70 Resp 16 16 B/P (MAP) 203/99 Pulse Ox 100 O2 Flow Rate 0 Re-Evaluation Re-Evaluation : Progress Re-evaluation: The patient continues to have upper abdominal pain, only slightly improved after multiple treatments. Discussed plan for CT scan. Medical Decision Making Differential Dx:Considerations: Include: AAA, Aortic dissection, Appendicitis, Bowel obstruction, Constipation, Gastritis/PUD, GI hemorrhage, Hepatitis, Pancreatitis Assessment The patient presents with upper abdominal pain. Per her history and exam, I suspect that this is gastritis or an ulcer, given her description of the pain and relation to food no other GI symptoms. She is quite tender. She was given pain medication, nausea medicine and IV fluids. Labs were unremarkable including no acute blood loss anemia, normal LFTs and no evidence of pancreatitis. After several treatments she was only partially improved, and after shared decision-making conversation we decided to proceed with a CT scan of her abdomen and pelvis. This was delayed because the emergency department did not have CT coverage for several hours during the night. The patient was signed out at morning shift change, pending CT scan and to determine disposition. If the CT scan is normal, she likely can be discharged home with an increase in her pantoprazole dose and a prescription for sucralfate as well as ongoing dietary changes. Departure Disposition: HOME / SELF CARE / HOMELESS Impression: Primary Impression: Acute gastritis Additional Impression: Epigastric pain Condition: Improved Discharge Instructions: Gastritis, Adult Referrals: NO PRIMARY CARE PROVIDER (PCP) Prescriptions Sucralfate (Sucralfate) 1 Gram Tablet 1 TAB PO Q6H for 30 Days, #120 TAB 0 Refills Prov: GREG MCKEON MD 12/17/24 ONDANSETRON ODT 4mg tablet (ONDANSETRON ODT) 4 Mg Tab.rapdis 1 TAB PO Q6H PRN PRN for nausea/vomiting for 4 Days, #16 TAB 0 Refills Prov: GREG MCKEON MD 12/17/24 Education Educated: Patient Educated regarding: diagnosis, treatment, need for follow up Signature Scribe Signature: . Attestation: . Addendum Received patient in sign out from outgoing ED physician, Dr. Mckeon. Please see their note (and other providers) for further specific details regarding initial encounter. HPI/Course In Brief: Patient presents with severe left upper abdominal pain. She tells me is worse in the upper abdomen and left side of the upper abdomen. She reports associated nausea and vomiting. CT abdomen pelvis is pending. 7:18 a.m.: CT abdomen shows no acute findings to explain the patient's symptoms. There is no evidence of a perforated viscus. There are some findings that should be followed up with her PCP as an outpatient and I have reviewed them with the patient. I am going to increase her pantoprazole and start her on Carafate. ED COURSE: I Informed the patient of: 1. Nature of abnormal findings 2. Implications of the findings 3. Possible consequences of not receiving additional diagnosis and/or treatment, or following the current treatment plan. 4. Explanation of management options and provision of appropriate referral resources as indicated 5. Their responsibility to receive follow-up care Discussed harm reduction to this emergency department visit today. Patient expresses understanding and agrees to plan. All questions answered to the best of my ability. Discharged in stable condition with strict ED return precautions and close outpatient follow-up with primary care. EMR and Dragon Attestation - this medical document was created using an electronic medical record system with [employer] computerized dictation system. Although this document has been carefully reviewed, there may still be some phonetic and typographical errors. These errors are purely typographical, due to imperfections of the software programs, and do not reflect any compromise in the patient's medical care. Note to Patients: Physician notes are written for the purpose of communication between medical providers and billing purposes. There may be aspects of this documentation that are simplified for efficiency and clarity. Physician notes are not intended to capture the entirety of your experience in the hospital. If you have questions about the way your medical condition and care was documented, please do not hesitate to bring this up at your next visit with your physician. GREG MCKEON MD Dec 17, 2024 02:36 GEORGE REECE MD Dec 17, 2024 06:11
[2024-12-17 02:54] LABS: MEAN PLATELET VOLUME 7.4 FL (7.4-10.4); RED CELL DISTRIBUTION WIDTH 12.9 % (11.5-14.5)
[2024-12-17 03:08] LABS: CREATININE 0.81 MG/DL (0.40-0.90); TOTAL CARBON DIOXIDE 27.5 MMOL/L (24-32); eCRCL 42 ML/MIN; eGFR 70 ML/MIN
[2024-12-17] MEDS: normal saline 1000ml 1,000 ML IV ONE (03:23)
[2024-12-17] MEDS: morphine 4 MG/ML inj SYRINge IV ONE ×2 (03:23→04:46)
[2024-12-17] MEDS: ondansetron/PF 4mg/2ml inj IV ONE (03:23)
[2024-12-17 03:48] LABS: LEUKOCYTE ESTERASE ,URINE NEGATIVE (Neg); NITRITES, URINE NEGATIVE (Neg); OCCULT BLOOD,URINE TRACE-INTACT (Neg)
[2024-12-17 03:56] LABS: UA COLLECTION TYPE NON-SPECIFIED
[2024-12-17 04:03] LABS: SQUAMOUS EPITHELIAL CELL,UR FEW /LPF (FEW)
[2024-12-17] MEDS: LIDOcaine 2% Viscous 15ml cup MM ONE (04:45)
[2024-12-17] MEDS: mag hydrox/Alum hydrox/simeth 30ml oral suspension PO ONE (04:46)
[2024-12-17] MEDS ORDERED: iohexol 300mg/ml 100ml inj. ONE (06:13)
[2024-12-17] MEDS ORDERED: SUCR1TAB PO (06:26)
[2024-12-17] MEDS ORDERED: ONDA-243 PO (06:26)
--- NOTE | 2024-12-17 07:15 | RADIOLOGY REPORT ---
CLINICAL INFORMATION: Upper abdominal pain. Rule out perforated ulcer. TECHNIQUE: Axial CT images of the abdomen and pelvis were obtained after the uneventful administrati on of 100 mL Omnipaque 300 IV contrast. Oral contrast was also administered prior to the examination. Coronal and sagittal reformatted images were obtained, reviewed, and stored. All CT scans at this ia dical facility are performed using dose modulation techniques as appropriate to a performed exam incl uding the following: Automated exposure control was utilized; adjustment of the MA and/or KV accordin g to patient size; and use of iterative reconstruction technique. CTDIvol = 20 mGy DLP = 865.55 mGy-cm COMPARISON: CT CT ABDOMEN PELVIS on DOS: 12/01/24, CT CTA ABDOMEN PELVIS on DOS: 03/04/24, CT CT ABDOME N PELVIS on DOS: 03/03/24 FINDINGS: Lung bases: Dependent atelectasis. Liver: Hepatic steatosis. Subtle area of hypo enhancement in the inferior right hepatic lobe measuri ng up to 1 cm, poorly delineated not well evaluated on this single phase of contrast. This is not see n on prior contrast enhanced exam dated 11/17/2022. Biliary: Mildly distended gallbladder. No calcified gallstones visualized. Common bile duct measures up to 7 mm in diameter, near the upper limits of normal. Spleen: Unremarkable. Pancreas: Unremarkable. No inflammatory changes, ductal dilatation, or mass identified. Adrenal glands: Unremarkable. No mass. Kidneys: No hydronephrosis or mass. Aorta/Vascular: Dense arterial calcification. No abdominal aortic aneurysm. Retroperitoneum: No mass or lymphadenopathy. Bowel/mesentery: No small bowel obstruction. No free air or free fluid. No findings are seen to sugge st perforated viscus. Appendix is not visualized. Scattered colonic diverticula without adjacent infl ammatory changes to suggest diverticulitis. Wall thickening of the rectosigmoid colon is most likely due to chronic diverticular disease, similar in appearance compared to prior exams.. Pelvic organs: Uterus is surgically absent. Bladder: Unremarkable. No mass. Abdominal wall: Small fat containing umbilical hernia. Bones: No acute fracture or focal intraosseous lesion. IMPRESSION: 1. No findings are seen to suggest perforated viscus. 2. Scattered colonic diverticula without adjacent inflammatory changes to suggest diverticulitis. 3. Hepatic steatosis. Small focal area of hypo enhancement in the inferior right hepatic lobe, of unc ertain etiology. This appears new compared to the prior contrast enhanced exam from 2022. Nonemergent liver mass protocol MRI could be considered to further characterize. 4. Gallbladder is mildly distended. No calcified gallstones visualized. Correlate with clinical findi ngs. 5. Common bile duct is at the upper limits of normal in size. No obstructing calcified gallstone visu alized. Correlate with clinical findings. 6. Additional nonacute findings as described above.
[2024-12-17 07:52] VITALS: BP 180/90; PULSE 70; RESP 12; TEMP 98; O2SAT 97
== END 2024-12-17 07:50 | disposition home or self-care (01) ==
LOC: ER 01:27
DX: K29.00 Acute gastritis without bleeding (principal); F12.90 Cannabis use, unspecified, uncomplicated; I10 Essential (primary) hypertension; I48.91 Unspecified atrial fibrillation; Z88.6 Allergy status to analgesic agent; Z90.49 Acquired absence of other specified parts of digestive tract; Z90.710 Acquired absence of both cervix and uterus; Z95.0 Presence of cardiac pacemaker; Z79.899 Other long term (current) drug therapy
CPT/HCPCS: 36415; 74177; 80053; 81001; 83690; 85025; 86885; 86900; 86901; 96361; 96365; 96375; 96376; 99285; J2270; J2405; J2470; J7030; Q9967

== ENCOUNTER 2025-01-06 04:58 | Emergency (ER) | payer MEDICARE, MEDICAID ==
[~2025-01-06] VITALS: Ht 147.3 cm; Wt 65.2 kg
[~2025-01-06 04:58] MED LIST changes: -AMI200T PO; +AMIO200T76 PO; -HYDR-3965 PO; +ONDA-243 PO; +SUCR1TAB PO
--- NOTE | 2025-01-06 05:07 | Physician Documentation ---
History of Present Illness Stated Complaint: ABDOMINAL PAIN Time Seen by MD: 05:03 OK to notify your PCP?: Yes Primary Medical Doctor: DR. WHITAKER Source: patient, RN/MD, EMS, RN notes reviewed, EMS notes reviewed, old records Mode of Arrival: EMS Exam Limitations: no limitations HPI 69 year old female seen in bed 14 presents to the emergency department via EMS for complaints of epigastric pain that has been present for six hours. Per EMS she was seen at her primary physical yesterday and was diagnosed with an epigastric bleed, UTI, and a bladder infection. She is currently experiencing the non radiating epigastric pain with nausea. She endorses black tarry stools. She states she is taking Eliquis, Protonix, and Zorolto. Medication Reconciliation Allergies: Coded Allergies: NSAIDS (Non-Steroidal Anti-Inflamma (Verified Adverse Reaction, Unknown, VOMITING, 12/17/24) aspirin (Verified Adverse Reaction, Unknown, SICK TO STOMACH, 12/17/24) Scheduled Amiodarone Hcl (Cordarone), 100 MG PO DAILY, (Reported) Buspirone HCl (Buspirone HCl), 2 TAB PO DAILY, (Reported) Calcium Carbonate (Calcium), 1 TAB PO DAILY, (Reported) Cholecalciferol (Vitamin D3) (Vitamin D3), 2 CAP PO DAILY, (Reported) Gabapentin (Neurontin), 300 MG PO QID, (Reported) Losartan Potassium (Losartan Potassium), 2 TAB PO DAILY, (Reported) Metoprolol Succinate (Metoprolol Succinate), 100 MG PO DAILY, (Reported) Multivitamin (Multi Vitamin Daily), 1 TAB PO DAILY, (Reported) Ondansetron 8mg ODT (Ondansetron Odt), 1 TAB PO Q6H Pantoprazole Sodium (Protonix), 1 TAB PO DAILY, (Reported) Rivaroxaban (Xarelto), 1 TAB PO DAILY, (Reported) Rosuvastatin Calcium (Rosuvastatin Calcium), 1 TAB PO QPM, (Reported) Sucralfate (Sucralfate), 1 TAB PO Q6H [Areds 2], 2 UNIT PO DAILY, (Reported) Scheduled PRN ONDANSETRON ODT 4mg tablet (Ondansetron Odt), 1 TAB PO Q6H PRN PRN for nausea/vomiting Discontinued Medications Hydrocodone Bit/Acetaminophen 5/325 MG ([place] 5/325 MG), 1-2 TAB PO Q4-6 hours PRN for pain Discontinued Reason: Auto Discontinued Past Medical History Past Medical History: Atrial Fibrillation, Diverticulitis, Gastritis, GI Bleed, Chronic Pain, Chronic Back Pain Past Surgical History: appendectomy, hysterectomy, orthopedic surgeries, pacemaker, other Other Past Surgical History: eye surgery Patient History: Autoimmune disorder MOTHER FH: heart disease Maternal grandmother Maternal grandfather Other Past Family History: NONCONTRIBUTORY Alcohol Use: None Drug Use: marijuana Lives In: Home Review of Systems All Other Systems at this time: Reviewed and Negative ROS As stated above in the HPI, otherwise all systems are reviewed and negative. Physical Exam Vital Signs: RN Vital Signs have been reviewed: Yes Pulse Oximetry Reflects: adequate oxygenation Physical Exam General: The patient is well developed, well nourished, nontoxic appearing and is in no acute distress. Skin: [place], warm and dry with no rashes. HEENT: Head was normocephalic and atraumatic. Eyes - pupils equal, round, reactive to light and accommodation. Extraocular movements were intact. Conjunctivae were nonicteric. Ears - bilateral tympanic membranes were normal. The mouth and oropharynx were clear with moist mucous membranes. There were no pharyngeal exudates or erythema. Neck: Supple and nontender. There was no jugular venous distention, lymphade nopathy, thyromegaly or masses. Chest: Clear to auscultation bilaterally without wheezes, rales or rhonchi. No accessory muscle use. No dullness to percussion. Heart: Rate regular and rhythmic. S1, S2. No murmurs. Palpation of the chest wall was normal. No rubs or thrills. Abdomen: Epigastric tenderness. Positive bowel sounds. No guarding or rebound. No hepatosplenomegaly or palpable masses. Extremities: No cyanosis, clubbing or edema. The patient moves all extremities. Pulses were equal and symmetric. Neurologic: Cranial nerves II-XII were intact. Sensation was intact to light touch throughout. Motor strength was 5/5 in all four extremities. Deep tendon reflexes were intact in both upper and lower extremities. Psychologic: The patient was oriented to person, place and time. The patient demonstrated appropriate judgement and insight. Rectal: No fissures or masses. Patient is slightly guiaiac positive with brown stools. Progress Results/Orders Reviewed/noted all lab results: Yes Re-Evaluation Re-Evaluation : Re-Evaluation: Improved, Unchanged Progress Patient was seen and examined. Patient was given reassurance. Patient presented with some epigastric pain. She was worked up for a GI bleed considering she had melena as well as some vomiting up some coffee-ground emesis earlier in the week. Patient may need a EGD to rule out upper GI bleed however her laboratory work and presentation today seems to show her bleeding has been resolving. Her WBCs normal at 7.1 hemoglobin 13 and hematocrit 38 without a left shift but platelets are slightly low at 135. Infectious etiologies is unlikely with her laboratory work and there was no significant anemia. She had some melena earlier in the week but now she should he states her stools seemed to have improved. Patient also states she vomited she is still taking Eliquis despite being told to hold her medications after being seen by the primary care physician. Her rectal exam was questionable for trace guaiac positive stools but basically negative and the color of her stools were brown. She did have some significant epigastric pain. Additional laboratory work shows normal electrolytes. BUN is normal at 18 with a creatinine of 0.76 again going against an upper GI bleed. Patient's LFTs are all within normal limits however alk-phos is slightly elevated at 118. Lipase normal at 33. Ultrasound was obtained showed a dilated common bile duct but no retained stones and normal gallbladder. Possibility of acalculous cholecystitis was considered but she has no fevers or white count. Also sludge in the gallbladder was considered but LFTs are within normal limits excluding the alk-phos. With a dilated common bile duct and positive Trujillo's sign because her pain and gallbladder are both in the epigastric area MRCP was considered but pacemaker prevents her from doing that at this time. As far as an ERCP without LFT changes patient will be discharged home with a additional pain meds and as far as her UTI which I will been unable to collect a urine all just be given another dose of Rocephin prior to discharge. Patient should return to the ER if her symptoms worsens or has any other complaints additionally she should contact both her primary care and surgeon for re-evaluation for her scheduled surgery. Overall patient has shown signs of improvement during her hospital course. Continuous plate former interpretation shows normal sinus rhythm heart rate 70s, no ectopy, normal, my interpretation. Pulse oximetry monitor interpretation shows normal oxygenation at 96% room air, normal, my interpretation. EKG/XRAY/CT/US/VASC/MRI EKG : Additional Comment 0504: EDMD Tesfayea interpreted EKG to show paced rhythm at 70bpm with a QTc of 427. Patient has good r wave progression. Chest X-Ray : Additional Comments Ordering Physician: DONOVAN CONNOLLY MD Exam: CHEST,SINGLE VIEW CHEST RADIOGRAPH Indication: Hypotension Technique: Single frontal view of the chest was obtained COMPARISON: DI CHEST,SINGLE VIEW on DOS: 12/24/24, DI CHEST,SINGLE VIEW on DOS: 11/25/24, DI CHEST,SINGLE VIEW on DOS: 04/28/24, DI CHEST,SINGLE VIEW on DOS: 10/01/23, CHEST,SINGLE VIEW on DOS: 11/16/22 FINDINGS: Lines and Tubes: Left chest pacemaker in satisfactory position. Lungs: Clear Pleura: No effusion. No pneumothorax. Cardiomediastinal contours: Unremarkable Bones: Unremarkable IMPRESSION: No acute disease. : CT: head With Contrast?: No Impression Ordering Physician: DONOVAN CONNOLLY MD Exam: CT ABDOMEN PELVIS Exam: CT CT ABDOMEN PELVIS History: ABD PAIN Comparison Study: CT CT ABDOMEN PELVIS on DOS: 12/24/24, CT CT ABDOMEN PELVIS W/ IV CONTRAST on DOS: 12/17/24, CT CT ABDOMEN PELVIS on DOS: 12/01/24, CT CTA ABDOMEN PELVIS on DOS: 03/04/24, CT CT ABDOMEN PELVIS on DOS: 03/03/24 Technique: Multidetector spiral CT of the abdomen was performed from lung bases to pubic symphysis. Imaging was performed without IV contrast. Axial, coronal and sagittal multiplanar reformats were obtained from the axial data set by the technologist. Radiation Dose : 1. Abdomen/Pelvis: CTDIvol 17.91 mGy, DLP 821.33 mGy*cm. Findings: Evaluation of solid organs is limited due to lack of intravenous contrast use. Lung Bases: No acute or significant lung base finding. Mild left hemidiaphragmatic elevation and left basilar atelectasis. Normal heart size. No pleural or pericardial effusion. Cardiac pacing leads. Liver: The liver is normal in size. No focal lesions. Gallbladder and Biliary Tree: Moderate nonspecific gallbladder distention. Spleen: Unremarkable Pancreas: The pancreas is grossly normal in appearance. Adrenal Glands: Unremarkable Kidneys: Kidneys are grossly normal without calculi or hydronephrosis. Bladder: Grossly unremarkable for degree of distention. Bowel: The stomach is grossly normal in appearance. Small bowel and colon are normal in caliber and distribution. Diverticulosis coli without CT evidence of acute diverticulitis. The appendix is not visualized; however, no secondary findings of acute appendicitis identified. Ascites: Absent Lymphadenopathy: No mesenteric, retroperitoneal or periportal lymphadenopathy. Abdominal Wall and Mesentery: Unremarkable. Vasculature: The visualized abdominal aorta is normal in size and caliber. Atherosclerotic vascular calcifications. Evaluation of abdominal and pelvic vessels is limited due to lack of intravenous contrast. Pelvic Organs: Unremarkable, status post cholecystectomy. Musculoskeletal: No aggressive focal bony lesions, acute fractures or disloca tion. IMPRESSION: 1. No acute abdominal or pelvic findings. 2. Nonspecific gallbladder distention. 3. Diverticulosis coli without CT evidence of acute diverticulitis. Radiation optimization: All CT scans at this facility use at least one of these dose optimization techniques: automated exposure control mA and/or kV adjustment per patient size (includes targeted exams where dose is matched to clinical indication) or iterative reconstruction. Medical Decision Making Additional info obtained from: old records Differential Dx:Considerations: Include: Bowel obstruction, Cholangitis, Cholelithasis, Constipation, Diverticular disease, Esophagitis, Gastritis/PUD, Gastroenteritis, GI hemorrhage, Hernia, Inflammatory BD, Ischemic bowel, Ovarian cyst/torsion, Pancreatitis, Urinary obstruction, Urinary tract infection, Urolithiasis, Other Departure Disposition: HOME / SELF CARE / HOMELESS Impression: Primary Impression: Epigastric abdominal pain Additional Impressions: Acute gastritis Qualified Codes: K29.00 - Acute gastritis without bleeding UTI (urinary tract infection) Qualified Codes: N39.0 - Urinary tract infection, site not specified Condition: Stable Discharge Instructions: Gastritis, Adult Additional Instructions: Follow up with GI doctor. Referrals: NO PRIMARY CARE PROVIDER (PCP) SAMMI GOMEZ MD Education Educated: Patient Educated regarding: diagnosis, treatment, prognosis Signature Scribe Signature: Scribed for Donovan Connolly MD by [employer] . 01/06/25 05:11 Attestation: The note accurately reflects work and decisions made by me.Donovan Connolly MD 01/06/25 05:07 DONOVAN CONNOLLY MD Jan 06, 2025 05:07 BESS DUNCAN Jan 06, 2025 05:13
[2025-01-06 05:28] LABS: MEAN PLATELET VOLUME 7.2 FL (7.4-10.4); RED CELL DISTRIBUTION WIDTH 13.2 % (11.5-14.5)
[2025-01-06 05:40] LABS: CREATININE 0.76 MG/DL (0.40-0.90); TOTAL CARBON DIOXIDE 28.4 MMOL/L (24-32); eCRCL 45 ML/MIN; eGFR 75 ML/MIN
[2025-01-06 05:41] LABS: APTT 30 SECONDS (22-32); INR 1.2 INR
--- NOTE | 2025-01-06 05:53 | RADIOLOGY REPORT ---
CHEST RADIOGRAPH Indication: Hypotension Technique: Single frontal view of the chest was obtained COMPARISON: DI CHEST,SINGLE VIEW on DOS: 12/24/24, DI CHEST,SINGLE VIEW on DOS: 11/25/24, DI CHEST,SING LE VIEW on DOS: 04/28/24, DI CHEST,SINGLE VIEW on DOS: 10/01/23, CHEST,SINGLE VIEW on DOS: 11/16/22 FINDINGS: Lines and Tubes: Left chest pacemaker in satisfactory position. Lungs: Clear Pleura: No effusion. No pneumothorax. Cardiomediastinal contours: Unremarkable Bones: Unremarkable IMPRESSION: No acute disease.
[2025-01-06] MEDS: normal saline 1000ml 1,000 ML IV ONE (06:07)
[2025-01-06] MEDS: LIDOcaine 2% Viscous 15ml cup MM ONE (06:07)
[2025-01-06] MEDS: mag hydrox/Alum hydrox/simeth 30ml oral suspension PO ONE (06:07)
--- NOTE | 2025-01-06 06:27 | RADIOLOGY REPORT ---
Exam: CT CT ABDOMEN PELVIS History: ABD PAIN Comparison Study: CT CT ABDOMEN PELVIS on DOS: 12/24/24, CT CT ABDOMEN PELVIS W/ IV CONTRAST on DOS: , CT CT ABDOMEN PELVIS on DOS: 12/01/24, CT CTA ABDOMEN PELVIS on DOS: 03/04/24, CT CT ABDOMEN PEL VIS on DOS: 03/03/24 Technique: Multidetector spiral CT of the abdomen was performed from lung bases to pubic symphysis. I maging was performed without IV contrast. Axial, coronal and sagittal multiplanar reformats were obta ined from the axial data set by the technologist. Radiation Dose : 1. Abdomen/Pelvis: CTDIvol 17.91 mGy, DLP 821.33 mGy*cm. Findings: Evaluation of solid organs is limited due to lack of intravenous contrast use. Lung Bases: No acute or significant lung base finding. Mild left hemidiaphragmatic elevation and left basilar atelectasis. Normal heart size. No pleural or pericardial effusion. Cardiac pacing leads. Liver: The liver is normal in size. No focal lesions. Gallbladder and Biliary Tree: Moderate nonspecific gallbladder distention. Spleen: Unremarkable Pancreas: The pancreas is grossly normal in appearance. Adrenal Glands: Unremarkable Kidneys: Kidneys are grossly normal without calculi or hydronephrosis. Bladder: Grossly unremarkable for degree of distention. Bowel: The stomach is grossly normal in appearance. Small bowel and colon are normal in caliber and d istribution. Diverticulosis coli without CT evidence of acute diverticulitis. The appendix is not vis ualized; however, no secondary findings of acute appendicitis identified. Ascites: Absent Lymphadenopathy: No mesenteric, retroperitoneal or periportal lymphadenopathy. Abdominal Wall and Mesentery: Unremarkable. Vasculature: The visualized abdominal aorta is normal in size and caliber. Atherosclerotic vascular c alcifications. Evaluation of abdominal and pelvic vessels is limited due to lack of intravenous cont rast. Pelvic Organs: Unremarkable, status post cholecystectomy. Musculoskeletal: No aggressive focal bony lesions, acute fractures or dislocation. IMPRESSION: 1. No acute abdominal or pelvic findings. 2. Nonspecific gallbladder distention. 3. Diverticulosis coli without CT evidence of acute diverticulitis. Radiation optimization: All CT scans at this facility use at least one of these dose optimization xochilt hniques: automated exposure control mA and/or kV adjustment per patient size (includes targeted exam s where dose is matched to clinical indication) or iterative reconstruction.
[2025-01-06] MEDS: CefTRIAXone 2gm/D5W 50ml BAG 50 ML IV ONE (08:04)
--- NOTE | 2025-01-06 08:05 | RADIOLOGY REPORT ---
INDICATION: RUQ pain TECHNIQUE: Multiple real-time sonographic images of the abdomen were obtained. COMPARISON: US ULTRASOUND OF ABDOMEN on DOS: 12/01/24, ULTRASOUND OF ABDOMEN on DOS: 11/16/22, ULTRASOUN D OF ABDOMEN on DOS: 11/05/22 FINDINGS: The liver is heterogeneous in echogenicity. The liver measures 13cm. No intrahepatic bilia ry ductal dilatation is noted. The gallbladder wall measures 0.2 cm and is unremarkable. Gallbladder sludge. The common duct measur es 0.8 cm and is unremarkable. No pericholecystic fluid is noted. The right kidney measures 10cm. No hydronephrosis. The pancreas is not well visualized due to obscuration from bowel gas. The visualized portions of the IVC and aorta are grossly unremarkable. IMPRESSION: Gallbladder sludge. Hepatic steatosis.
--- NOTE | 2025-01-06 08:05 | ELECTROCARDIOGRAPH REPORT ---
[facility] Test Date: 2025-01-06 Test Time: 05:04:08 Pat Name: DIPESH YANCEY Department: EMERGENCY ROOM Room: Gender: F Stamp Mounter: : 1955 Requested By: GABRIELA COOK Order Number: [id number] Reading MD: Dr. Gabriela Cook Measurements Intervals [place] Rate: 70 P: 0 WA: 200 QRS: 36 QRSD: 88 T: 36 QT: 395 QTc: 427 Interpretive Statements Atrial-paced rhythm Low voltage, precordial leads Electronically Signed On 01-06-2025 18:16:[address] Gabriela Cook Please click the below link to view image of tracing.
[2025-01-06 08:17] LABS: LEUKOCYTE ESTERASE ,URINE NEGATIVE (Neg); NITRITES, URINE NEGATIVE (Neg); OCCULT BLOOD,URINE NEGATIVE (Neg)
[2025-01-06 08:38] LABS: UA COLLECTION TYPE CLN CATCH MIDSTREAM
[2025-01-06 08:56] VITALS: BP 146/74; PULSE 72; RESP 16; TEMP 98; O2SAT 99
== END 2025-01-06 08:50 | disposition home or self-care (01) ==
LOC: ER 04:59
DX: K29.00 Acute gastritis without bleeding (principal); N39.0 Urinary tract infection, site not specified; I48.91 Unspecified atrial fibrillation; F12.90 Cannabis use, unspecified, uncomplicated; Z79.01 Long term (current) use of anticoagulants; Z87.19 Personal history of other diseases of the digestive system; Z88.6 Allergy status to analgesic agent; Z90.49 Acquired absence of other specified parts of digestive tract; Z90.710 Acquired absence of both cervix and uterus
CPT/HCPCS: 71045; 74176; 76700; 80048; 80076; 81003; 83690; 85025; 85610; 85730; 86885; 86900; 86901; 93005; 96361; 96374; 96375; 99285; J0696; J1171; J2470; J7030; 36415

== ENCOUNTER 2025-01-12 16:16 | Emergency (ER) | payer MEDICARE, MEDICAID ==
[~2025-01-12] VITALS: Ht 147.3 cm; Wt 61.9 kg
--- NOTE | 2025-01-12 17:04 | ELECTROCARDIOGRAPH REPORT ---
[facility] Test Date: 2025-01-12 Test Time: 17:01:15 Pat Name: DIPESH YANCEY Department: EMERGENCY ROOM Room: Gender: F Box Office Attendant: JESSICA : 1955 Requested By: JOSE RAMON RIDLEY Order Number: [id number] Reading MD: Dr. Donovan Connolly Measurements Intervals [place] Rate: 70 P: 0 ID: [id number] QRS: 23 QRSD: 87 T: 25 QT: 399 QTc: 431 Interpretive Statements Atrial-paced rhythm Electronically Signed On 01-13-2025 19:29:[address] Donovan Connolly Please click the below link to view image of tracing.
--- NOTE | 2025-01-12 17:09 | Physician Documentation ---
History of Present Illness Chief Complaint: Abdominal Pain Stated Complaint: ABD PAIN HPI Patient is a 69-year-old female did present to the emergency department for evaluation of epigastric abdominal pain x1 week with significant progression of the pain x1 day. If worsens she was seen at her primary care provider's office last week and evaluated for blood in her stool. Since that time she said that she has felt fine until yesterday when the pain became significantly worse. Denies any suraj red blood in her stool today. Patient denies fever, as reports nausea that is increased over the last 24 hours. Additional note by Heri Hughes DO: I took over the care of this patient from previous physician. I reviewed any previous notes available, obtain my own history, review of systems and physical examination was performed by myself. Patient confirms the story, she is experiencing epigastric abdominal pain that is sharp, severe, worse so over the last 24 hours. It is similar in identical to the pain she has been experiencing multiple times for multiple visits. She has an appointment pending with Dr. Siddiqi, had EGD a year ago. She has been diagnosed with a gastritis recently. And also reports history of ulcer. No concern for tobacco, alcohol or illicit substances use Medication Reconciliation Allergies: Coded Allergies: aspirin (Verified Allergy, Intermediate, VOMITING, 01/12/25) Uncoded Allergies: NSAIDS (Allergy, Intermediate, VOMITING, 01/12/25) Review of Systems ROS 10 point review of systems was performed and unless noted above in HPI is negative for acute process/complaint. Physical Exam Vital Signs: Temperature: 98.7, Source: Temporal, Heart Rate: 70, Respiratory Rate: 16, BP: 184/86, Pulse Oximetry: 97, Weight: 61.900 Oxygen Flow Rate: 0 Physical Exam GENERAL: Awake, alert, oriented, GCS 15, no apparent distress, non-toxic appearing, answers questions, follows commands appropriately. Examined in bed 1. HEENT: Atraumatic, normocephalic, pupils equal, extraocular muscles intact, sclerae anicteric, mucus membranes moist, oropharynx is clear, no stridor. NECK: supple, full active range of motion, trachea midline, no thyromegaly, no lymphadenopathy, no JVD. CARDIOVASCULAR: regular rate/rhythm, no murmurs/gallops/rubs, Pulses are 2+ in all extremities and symmetric. Capillary refill less than 2 seconds. PULMONARY: Nonlabored, good air movement ,no respiratory distress, speaking in full sentences, clear to auscultation bilaterally, no wheezing, no ronchi, no rales, no accessory muscle use. GASTROINTESTINAL: Soft, non-tender, non-distended, normal active bowel sounds, no organomegaly, no pulsatile masses, no CVA tenderness. NEUROLOGIC: Lucid with normal mental status. Normal facial symmetry. Moves all extremities symmetrically and with purpose. No truncal ataxia. Speech is fluid without evidence of dysarthria or aphasia, no focal deficits appreciated. MUSCULOSKELETAL: There is full range of motion of all extremities. There is no joint pain or joint swelling or joint erythema. There is no muscle pain or tenderness or swelling. EXTREMITIES: warm, well-perfused, no cyanosis, no clubbing, no edema, no acute deformities. Skin: warm, dry, no rashes or lesions, no jaundice, no petechiae orpurpura. No ecchymosis. PSYCHIATRIC: Normal affect, normal insight, normal concentration. Focused exam: No guarding or rebound Progress Results/Orders Results/Orders Vital Signs 01/12/25 16:43 Temp 98.7 Pulse 70 Resp 16 B/P (MAP) 184/86 Pulse Ox 97 O2 Flow Rate 0 Medical Decision Making Findings Facility Status: [facility], [facility] process The plan was discussed with the patient, who demonstrates clear understanding of the plan and is in agreement with the plan unless otherwise noted in the chart. All questions have been answered, all concerns were addressed unless otherwise documented. I was available throughout their ED stay for frequent reassessment and questions. Differential Diagnoses (considered and possible or likely): [Differential diagnosis considered includes upper GI bleed, acute appendicitis, acute cholecystitis, pancreatitis, gastritis, PUD, diverticulitis, mesenteric ischemia, abdominal aortic aneurysm, bowel obstruction, enteritis, colitis, fecal impaction, volvulus, IBS, inflammatory bowel disease, specific food intolerance, peritonitis, perforated viscous, malignancy, UTI, abscess, and abdominal pain NOS. Pelvic source of pain was also considered including endometritis, dysmenorrhea, ovarian cyst, ovarian torsion, PID, TOA, cervicitis, vaginitis, or uterine fibroid. History, physical exam, and workup exclude many of the more serious causes listed above. ] ??Differential Diagnoses (considered and unlikely, not requiring evaluation currently): [Aortic/great vessels dissection was considered but it is unlikely based on absence of ripping, tearing, migratory chest pain, absence of syncope or focal neurologic deficits, physical examination indicating equal and symmetri c pulses.] MDM Data Please see HPI for the following: Independent Historians and external Records Review. Historian: [Patient] Independent Historians: ?[Extensive record review multiple visits] Medication Management: [Reviewed medication list] Social History and determinants: [Reviewed] Please see the body of the note for the following: Any independent interpretations of ECG, imaging studies. All vitals signs/haemodynamics, ordered tests were independently reviewed and interpreted by myself. Nursing triage complaint and vitals reviewed, additional nursing notes were rev iewed as available and I agree unless otherwise noted or documented in contradiction in the chart Vital Signs: Independently reviewed Labs: Independently interpreted Imaging: Independently interpreted Old Medical Records: Independently reviewed, see [facility] for relevant summary and information Pulse Oximetry: [97%] interpreted as [normal on room air] by me [Life Enrichment Specialist: [Regular Rate, Regular rhythm, no ectopy, NSR] reviewed and interpreted by me] Additionally notably showing: [Hemodynamics reviewed. The patient isn't febrile, not tachycardic, no evidence of hypotension with a narrow pulse pressure. Laboratory studies reviewed. Her hemoglobin is stable from prior visits. There was no leukocytosis. Improved platelets. Chemistry shows BUN creatinine ratio of 24 consistent with dehydration rather than upper GI bleed. Lipase is normal. UA nondiagnostic for UTI.] Tests considered but not ordered include: [Imaging has been considerably the patient had multiple CT scans in the recent CT scan when she presented with the same complaint on 01/06/2025] Social Determinants of Health Impact: Patient was evaluated in [facility], or [facility] [place] to healthcare due to below par ratio of patient to medical providers. [] Comorbid Conditions Impacting Present Evaluation and Care/Treatment: [History of gastritis, ulcers] Management Discussions with other Healthcare Providers: [] Treatment and Disposition Medication Management (Given or considered): [Pain management]. See EMR for details Consideration for Hospitalization/Escalation/Deescalation of Care: Admission for observation has been considered, [however the patient is able to tolerate p.o., their symptoms are controlled, they are able to rely on oral medications, and their chief complaint/diagnosis can be managed on outpatient basis.] Because patient continues to complain of severe abdominal pain, CT was eventually obtained to rule out perforated gastric ulcer. CT shows no acute intra-abdominal process. ?ED Course:?[No clinical deterioration] ?Shared decision making:?[Patient is hemodynamically stable for discharge home with follow with their primary care provider. [ ] Specific and cautious return precautions provided and discussed with full understanding. Any incidental findings were also discussed and follow up recommendations given. [] All questions answered. Patient/family were able to verbalize back return precautions. Patient/family agree to plan. Copies of imaging and laboratory studies were provided.] Code status:?FULL Please see the full Electronic Medical Record for full details of nursing documentation, medications list, other records of complete past medical history and conditions, vital signs, laboratory studies, and any radiologic study interpretations by radiologists. Portions of this note were completed using [employer] dictation software and as a result there may exist minor errors in spelling. I have reviewed elements of past family and social history and agree as included in note. Departure Disposition: 01 HOME / SELF CARE / HOMELESS Impression: Primary Impression: Epigastric abdominal pain Condition: Improved Discharge Instructions: Abdominal Pain (Nonspecific) Referrals: NO PRIMARY CARE PROVIDER (PCP) Education Educated: Patient Educated regarding: diagnosis, treatment, prognosis, need for follow up Signature Scribe Signature: No scribe Attestation: This note accurately reflects clinical decisions, work performed by myself, DO ELVIS Soliz JENNIFER A FNP Jan 12, 2025 17:09 HERI HUGHES DO Jan 13, 2025 00:24
[2025-01-12 17:42] LABS: MEAN PLATELET VOLUME 7.6 FL (7.4-10.4); RED CELL DISTRIBUTION WIDTH 13.6 % (11.5-14.5)
[2025-01-12 17:59] LABS: CREATININE 0.74 MG/DL (0.40-0.90); TOTAL CARBON DIOXIDE 25.9 MMOL/L (24-32); eCRCL 46 ML/MIN; eGFR 78 ML/MIN
[2025-01-12 18:46] VITALS: TEMP 98.7
[2025-01-12 19:47] LABS: URINE HCG NEGATIVE (NEG)
[2025-01-12 19:49] LABS: LEUKOCYTE ESTERASE ,URINE NEGATIVE (Neg); NITRITES, URINE NEGATIVE (Neg); OCCULT BLOOD,URINE NEGATIVE (Neg)
[2025-01-12 19:58] LABS: UA COLLECTION TYPE CLN CATCH MIDSTREAM
[2025-01-12] MEDS: hydrALAZINE 20mg/ml inj. IV ONE (23:07)
[2025-01-13] MEDS: ondansetron/PF 4mg/2ml inj IV ONE (00:20)
[2025-01-13] MEDS: morphine 4 MG/ML inj SYRINge IV ONE (00:21)
[2025-01-13] MEDS: LIDOcaine 2% Viscous 15ml cup MM ONE (00:45)
[2025-01-13] MEDS: mag hydrox/Alum hydrox/simeth 30ml oral suspension PO ONE (00:45)
[2025-01-13] MEDS ORDERED: iohexol 300mg/ml 100ml inj. ONE (01:21)
--- NOTE | 2025-01-13 02:51 | RADIOLOGY REPORT ---
Exam: CT CT ABDOMEN PELVIS W/ IV CONTRAST History: Intractable epigastric pain COMPARISON: None Technique: Multidetector spiral CT of the abdomen and pelvis was performed from lung bases to pubic s ymphysis. Intravenous contrast was administered during this examination. Portal venous imaging was o btained. Axial, coronal and sagittal multiplanar reformats were performed by the technologist on a [employer] workstation. Radiation Dose : 1. Abdomen/Pelvis: CTDIvol 20.58 mGy, DLP 935.43 mGy*cm. CONTRAST: Type of contrast: Omniscan 300 Contrast injected: 80 ml Findings: Lung Bases: No acute or significant lung base finding. Mild bibasilar atelectasis. Normal heart size . No pleural or pericardial effusion. Cardiac pacing leads. Liver: The liver is normal in size. No focal lesions. Normal hepatic vascular enhancement. Gallbladder and Biliary Tree: Unremarkable Spleen: Unremarkable Pancreas: The pancreas is normal in appearance without focal lesions or abnormal enhancement. Adrenal Glands: Unremarkable Kidneys: No hydronephrosis. Bladder: Unremarkable Bowel: The stomach is grossly normal in appearance. Small bowel and colon are normal in caliber and d istribution. Diverticulosis coli without CT evidence of acute diverticulitis. The appendix is not vis ualized; however, no secondary findings of acute appendicitis identified. Ascites: Absent Lymphadenopathy: No mesenteric, retroperitoneal or periportal lymphadenopathy. Abdominal Wall and Mesentery: Unremarkable. Vasculature: The visualized abdominal aorta is normal in size and caliber. Atherosclerotic vascular c alcifications. Abdominal and pelvic vessels demonstrate normal enhancement. Pelvic Organs: Unremarkable, status post hysterectomy. Musculoskeletal: No aggressive focal bony lesions, acute fractures or dislocation. IMPRESSION: 1. No acute abdominal or pelvic finding. 2. Diverticulosis coli without CT evidence of acute diverticulitis. Radiation optimization: All CT scans at this facility use at least one of these dose optimization xochilt hniques: automated exposure control mA and/or kV adjustment per patient size (includes targeted exam s where dose is matched to clinical indication) or iterative reconstruction.
[2025-01-13 03:05] VITALS: BP 144/78; PULSE 78; RESP 16; O2SAT 98
== END 2025-01-13 03:52 | disposition home or self-care (01) ==
LOC: ER 16:17 → MERGE 16:17 → ER 01-13 03:52
DX: R10.13 Epigastric pain (principal); Z88.6 Allergy status to analgesic agent
CPT/HCPCS: 36415; 74177; 80053; 81003; 81025; 83690; 85025; 93005; 96374; 96375; 99285; J0360; J2270; J2405; Q9967

== ENCOUNTER 2025-02-28 03:09 | Emergency (ER) | payer MEDICARE, MEDICAID ==
[~2025-02-28] VITALS: Ht 147.3 cm; Wt 66.0 kg
[2025-02-28 03:13] VITALS: TEMP 97.9
--- NOTE | 2025-02-28 03:20 | Physician Documentation ---
History of Present Illness ~ Chief Complaint: Chest Pain Stated Complaint: CHEST PAIN Time Seen by MD: 03:17 Primary Medical Doctor: DR. WHITAKER HPI Patient presents to the emergency room for evaluation of chest pain. She states she went to bed in her blood pressure was 140. When she woke up she had in his she is having some chest pain which prompted her take her blood pressure and that has a proximally 180. She continued to take her blood pressure and it kept on going higher therefore she took a clonidine and called the ambulance. Chest pain is sharp in nature exacerbated with palpation and deep inspirations. Patient did not note that she fell the day before yesterday and has a bruise on her right shoulder. Medication Reconciliation Allergies: Coded Allergies: NSAIDS (Non-Steroidal Anti-Inflamma (Verified Adverse Reaction, Unknown, VOMITING, 12/17/24) aspirin (Verified Adverse Reaction, Unknown, SICK TO STOMACH, 12/17/24) Uncoded Allergies: NSAIDS (Allergy, Intermediate, VOMITING, 01/13/25) Scheduled Amiodarone Hcl (Cordarone), 100 MG PO DAILY, (Reported) Buspirone HCl (Buspirone HCl), 2 TAB PO DAILY, (Reported) Calcium Carbonate (Calcium), 1 TAB PO DAILY, (Reported) Cholecalciferol (Vitamin D3) (Vitamin D3), 2 CAP PO DAILY, (Reported) Gabapentin (Neurontin), 300 MG PO QID, (Reported) Losartan Potassium (Losartan Potassium), 2 TAB PO DAILY, (Reported) Metoprolol Succinate (Metoprolol Succinate), 100 MG PO DAILY, (Reported) Multivitamin (Multi Vitamin Daily), 1 TAB PO DAILY, (Reported) Ondansetron 8mg ODT (Ondansetron Odt), 1 TAB PO Q6H Pantoprazole Sodium (Protonix), 1 TAB PO DAILY, (Reported) Rivaroxaban (Xarelto), 1 TAB PO DAILY, (Reported) Rosuvastatin Calcium (Rosuvastatin Calcium), 1 TAB PO QPM, (Reported) Sucralfate (Sucralfate), 1 TAB PO Q6H [Areds 2], 2 UNIT PO DAILY, (Reported) Scheduled PRN ONDANSETRON ODT 4mg tablet (Ondansetron Odt), 1 TAB PO Q6H PRN PRN for nausea/vomiting Past Medical History Past Medical History: Atrial Fibrillation, Diverticulitis, Gastritis, GI Bleed, Chronic Pain, Chronic Back Pain Past Surgical History: appendectomy, hysterectomy, orthopedic surgeries, pacemaker, other Other Past Surgical History: eye surgery Patient History: Autoimmune disorder MOTHER FH: heart disease Maternal grandmother Maternal grandfather Other Past Family History: NONCONTRIBUTORY Alcohol Use: None Drug Use: marijuana Lives In: Home Review of Systems ROS All review of systems negative except as per HPI Physical Exam Vital Signs: Temperature: 97.9, Source: Oral, Heart Rate: 70, Respiratory Rate: 16, BP: 136/117, Pulse Oximetry: 95, Weight: 66.000 Physical Exam General: Patient is awake, alert, oriented x4 in no acute distress. Mildly anxious Head: Normocephalic and atraumatic. Eyes: Conjunctival normal. EOMI. PERRL. ENT: Mucous membranes moist. Neck: Supple, trachea is midline. Chest: Clear to auscultation bilaterally without rales, rhonchi, or wheezes. There is no accessory muscle use or retractions. Tenderness to palpation to precordium Cardiac: RRR without murmurs, gallops, or rubs. Abd: Soft, nondistended, nontender, with normoactive bowel sounds. No guarding, rebound, or rigidity. Extremities: Normal strength. Normal range of motion. No deformities or edema. Progress Results/Orders Results/Orders Orders - TOY TARANGO MD Chest,Single View (02/28/25 03:11) Monitor (02/28/25 03:11) Saline Lock (02/28/25 03:11) Oxygen (02/28/25 03:11) Electrocardiogram (02/28/25 03:11) Hs Troponin I W Calculations (02/28/25 05:11) Hs Troponin I W Calculations (02/28/25 06:11) Completed Orders - TOY TARANGO MD Chest,Single View (02/28/25 03:11) Cbc/Diff (02/28/25 03:11) BMP (02/28/25 03:11) PBNP (02/28/25 03:11) Hs Troponin I W Calculations (02/28/25 03:11) Acetaminophen 1,000mg/100ml Iv (Ofirmev (02/28/25 04:15) Medications Received in ER Medications (Trade) Dose Ordered Sig/Byron Route PRN Reason Start Time Stop Time Status Last Admin Dose Admin Acetaminophen 100 ml @ 400 mls/hr ONCE ONCE IV 02/28/25 04:15 02/28/25 04:29 DC 02/28/25 04:18 400 MLS/HR Vital Signs 02/28/25 02/28/25 02/28/25 03:13 03:19 04:12 Temp 97.9 Pulse 70 70 Resp 16 B/P (MAP) 136/117 152/78 (102) Pulse Ox 95 98 Laboratory Tests Test 02/28/25 03:25 02/28/25 05:30 White Blood Count 4.9 Red Blood Count 3.86 L Hemoglobin 12.4 Hematocrit 36.4 Mean Corpuscular Volume 94.3 Mean Corpuscular Hemoglobin 32.0 H Mean Corpuscular Hemoglobin Concent 34.0 Red Cell Distribution Width 13.4 Platelet Count 138 L Mean Platelet Volume 7.2 L Neutrophils (%) (Auto) 52.8 Lymphocytes (%) (Auto) 32.6 Monocytes (%) (Auto) 10.1 Eosinophils (%) (Auto) 3.6 Basophils (%) (Auto) 0.9 Neutrophils # (Auto) 2.6 Lymphocytes # (Auto) 1.6 Monocytes # (Auto) 0.5 Eosinophils # (Auto) 0.2 Basophils # (Auto) 0.0 CBC Comment Sodium Level 140 Potassium Level 3.6 Chloride Level 106 Carbon Dioxide Level 25.9 Anion Gap 8 Blood Urea Nitrogen 25 H Creatinine 0.89 Estimated GFR/1.73 m2 63 BUN/Creatinine Ratio 28.1 H Glucose Level 104 Calcium Level 9.2 Troponin I High Sensitivity 6 Pro-B-Type Natriuretic Peptide 224 H Albumin 3.8 Chemistry Comments EKG/XRAY/CT/US/VASC/MRI EKG : Additional Comment EKG interpreted by myself [place] of 0313, rate 70, paced rhythm. No further analysis secondary to paced rhythm Medical Decision Making Findings Patient presented to the emergency room with atypical chest pain elicited with palpation. Differentials include but are not limited to musculoskeletal pain, ACS, pulmonary embolism, aortic pathology therefore emergent labs ordered. Labs reassuring for troponins negative x2. The fact that I am able to elicit pain with palpitation that has very reassuring. Patient's blood pressures improved. No evidence of end-organ damage. Patient's chest pain is atypical with a heart score of three that has considered low risk. The need to follow up with her doctor discussed as well as ER precautions. Departure Disposition: HOME / SELF CARE / HOMELESS Impression: Primary Impression: Tenderness of chest wall Condition: Stable Discharge Instructions: Chest Wall Pain Referrals: NO PRIMARY CARE PROVIDER (PCP) Signature Scribe Signature: No scribe Attestation: The note accurately reflects work and decisions made by me.Toy Tarango MD 02/28/25 06:00 TOY TARANGO MD Feb 28, 2025 03:20
[2025-02-28 03:33] LABS: MEAN PLATELET VOLUME 7.2 FL (7.4-10.4); RED CELL DISTRIBUTION WIDTH 13.4 % (11.5-14.5)
--- NOTE | 2025-02-28 03:49 | RADIOLOGY REPORT ---
CHEST RADIOGRAPH Indication: CP Technique: Single frontal view of the chest was obtained COMPARISON: DI CHEST,SINGLE VIEW on DOS: 01/06/25, DI CHEST,SINGLE VIEW on DOS: 12/24/24, DI CHEST,SINGLE VIEW on DOS: 11/25/24, DI CHEST,SINGLE VIEW on DOS: 04/28/24, DI CHEST,SINGLE VIEW on DOS: 10/01/23 FINDINGS: Lines and Tubes: None. Left anterior chest wall dual lead cardiac pacing device. Lungs: Clear Pleura: No effusion. No pneumothorax. Cardiomediastinal contours: Unremarkable Bones: Unremarkable IMPRESSION: 1. No acute disease.
[2025-02-28 03:55] LABS: CREATININE 0.89 MG/DL (0.40-0.90); PRO BRAIN NATRIURETIC PEPTIDE 224 PG/ML (0-125); TOTAL CARBON DIOXIDE 25.9 MMOL/L (24-32); eCRCL 39 ML/MIN; eGFR 63 ML/MIN
[2025-02-28] MEDS: acetaminophen 1,000mg/100ml IV 100 ML IV ONE (04:18)
--- NOTE | 2025-02-28 06:11 | ELECTROCARDIOGRAPH REPORT ---
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 Donovan Connolly Measurements Intervals [place] Rate: 70 P: 0 NM: 180 QRS: 53 QRSD: 94 T: 64 QT: 428 QTc: 462 Interpretive Statements Atrial-paced rhythm Low voltage, precordial leads Nonspecific T abnrm, anterolateral leads Baseline wander in lead(s) I,III,aVR,aVL,aVF Electronically Signed On 03-01-2025 19:18:[address] Donovan Connolly Please click the below link to view image of tracing.
[2025-02-28 06:15] VITALS: BP 164/58; PULSE 88; RESP 16; O2SAT 98
== END 2025-02-28 06:17 | disposition home or self-care (01) ==
LOC: ER 03:10
DX: R07.89 Other chest pain (principal); R06.02 Shortness of breath; I48.91 Unspecified atrial fibrillation; F12.90 Cannabis use, unspecified, uncomplicated; Z88.6 Allergy status to analgesic agent; Z90.49 Acquired absence of other specified parts of digestive tract; Z90.710 Acquired absence of both cervix and uterus; Z95.0 Presence of cardiac pacemaker
CPT/HCPCS: 36415; 71045; 80048; 83880; 84484; 85025; 93005; 96365; 96366; 99285; J0131

== ENCOUNTER 2025-04-06 12:53 | Outpatient (CLI) | payer MEDICARE, MEDICAID ==
[~2025-04-06] VITALS: Ht 140.3 cm; Wt 62.1 kg
[2025-04-06 13:18] LABS: TOTAL HEMOGLOBIN 14.7 G/dl (12.0-16.0)
[2025-04-06] MEDS: albuterol 2.5 MG/3 ML nebule NEB ONE (13:52)
[2025-04-06 13:55] VITALS: PULSE 70; RESP 16; O2SAT 95
[2025-04-06 14:08] VITALS: PULSE 70; RESP 16
--- NOTE | 2025-04-07 16:16 | PROCEDURE NOTE - Respiratory ---
Procedure Note-Respiratory Providers to Copies To 1: CHANTE OSCAR MD Procedure Name: This is a complete pulmonary function study dated April 06, 2025. Hemoglobin measurement was done as part of the study. Spirometry measurements: Both the forced vital capacity and the FEV1 measurements are normal. The FEV1 ratio is borderline reduced. Some of the flow rates show slight reduction. After inhaled bronchodilator was ad ministered, some of the flow rates show slight improvement. Spirometry documents very mild obstructive ventilatory defect. Lung volume measurements: The total lung capacity is slightly elevated. There is also elevation in the functional residual capacity measurement and the residual volume measurement. This indicates hyperinflation with air trapping within the lungs. Lung diffusion measurement: The DLCO is mildly reduced. It is noted that the alveolar volume measurement is normal. It is the KVO measurement that has brought down the DLCO corrected value. It is noted that the hemoglobin measurement is normal. Airway resistance measurement: The airway resistance is normal. Conclusion: This study shows mild abnormality. There is evidence for mild obstructive ventilatory defect. The patient also shows evidence of hyperinflation with gas trapping within the lungs. These findings together with the slight reduction in the DLCO measurement indicates that there is probably some emphysema present. We have no previous studies for comparison. There is no evidence for amiodarone pulmonary toxicity. If this patient continues to use amiodarone, it is recommended that repeat pulmonary function testing be done in approximately one year. RANI MYERS MD Apr 07, 2025 16:16
== END 2025-04-06 23:59 | disposition home or self-care (01) ==
LOC: RT 12:53
PROVIDERS: ATTEND Internal Medicine Cardiovascular Disease
DX: R06.02 Shortness of breath (principal); Z79.899 Other long term (current) drug therapy
CPT/HCPCS: 85018; 94060; 94727; 94729; 94760

== ENCOUNTER 2025-05-08 04:11 | Emergency (ER) | payer MEDICARE, MEDICAID ==
[~2025-05-08] VITALS: Ht 139.7 cm; Wt 63.3 kg
[~2025-05-08 04:11] MED LIST changes: +AMIO100T4 PO; -AMIO200T76 PO; +APIX2.5T PO; -BUSP15TA3 PO; +BUSP30TA3 PO; -CALC600T14 PO; -CHOL100040 PO; +LOSA-415 PO; -LOSA50TA64 PO; -METO-384 PO; +METO-395 PO; -MULT-1085 PO; -ONDA-245 PO; -PANT20TA18 PO; +PANT40TA54 PO; -RIVA20TA PO; -SUCR1TAB PO
--- NOTE | 2025-05-08 04:46 | Physician Documentation ---
History of Present Illness ~ Chief Complaint: Hypertension Stated Complaint: BLOOD PRESSURE COMPLICATIONS Time Seen by MD: 04:33 Primary Medical Doctor: DR. WHITAKER HPI Patient presents to the emergency room with dysuria and high blood pressure. Patient reports a hyperdynamic blood pressure in his had times of hypotension with taking her medications therefore only 25 mg of losartan has patient been prescribed with instructions to take a 2nd dose if her blood pressure remains over 180 systolic along with clonidine. Patient was prompted to take her blood pressures night because she is up and Sanya with dysuria all night long for s ymptoms of urinary tract infection. She reports that she had a biopsy in her vaginal area one month ago in his checked by her primary just a couple of days ago and he had not appear to have any infection however since that time she has developed urinary frequency. No fevers Medication Reconciliation Allergies: Coded Allergies: NSAIDS (Non-Steroidal Anti-Inflamma (Verified Adverse Reaction, Unknown, VOMITING, 05/03/25) aspirin (Verified Adverse Reaction, Unknown, SICK TO STOMACH, 05/03/25) Uncoded Allergies: NSAIDS (Allergy, Intermediate, VOMITING, 01/13/25) Scheduled Amiodarone HCl (Amiodarone HCl), 1 TAB PO DAILY, (Reported) Apixaban (Eliquis), 2.5 MG PO BID, (Reported) Buspirone HCl (Buspirone HCl), 1 TAB PO Q12H, (Reported) Gabapentin (Neurontin), 300 MG PO QID, (Reported) Losartan Potassium* (Cozaar*), 1 TAB PO DAILY, (Reported) Metoprolol Succinate (Metoprolol Succinate), 1 TAB PO BID, (Reported) Pantoprazole Sodium (Pantoprazole Sodium), 40 MG PO BID, (Reported) Rosuvastatin Calcium (Rosuvastatin Calcium), 1 TAB PO QPM, (Reported) [Areds 2], 2 UNIT PO DAILY, (Reported) Scheduled PRN ONDANSETRON ODT 4mg tablet (Ondansetron Odt), 1 TAB PO Q6H PRN PRN for nausea/vomiting Discontinued Medications Amiodarone Hcl (Cordarone), 100 MG PO DAILY, (Reported) Discontinued Reason: patient no longer taking Buspirone HCl (Buspirone HCl), 2 TAB PO DAILY, (Reported) Discontinued Reason: patient no longer taking Calcium Carbonate (Calcium), 1 TAB PO DAILY, (Reported) Discontinued Reason: patient no longer taking Cholecalciferol (Vitamin D3) (Vitamin D3), 2 CAP PO DAILY, (Reported) Discontinued Reason: patient no longer taking Losartan Potassium (Losartan Potassium), 2 TAB PO DAILY, (Reported) Discontinued Reason: patient no longer taking Metoprolol Succinate (Metoprolol Succinate), 100 MG PO DAILY, (Reported) Discontinued Reason: patient no longer taking Multivitamin (Multi Vitamin Daily), 1 TAB PO DAILY, (Reported) Discontinued Reason: patient no longer taking Ondansetron 8mg ODT (Ondansetron Odt), 1 TAB PO Q6H Discontinued Reason: patient no longer taking Pantoprazole Sodium (Protonix), 1 TAB PO DAILY, (Reported) Discontinued Reason: patient no longer taking Pantoprazole Sodium (Pantoprazole Sodium), 1 TAB PO DAILY, (Reported) Discontinued Reason: patient no longer taking Rivaroxaban (Xarelto), 1 TAB PO DAILY, (Reported) Discontinued Reason: patient no longer taking Sucralfate (Sucralfate), 1 TAB PO Q6H Discontinued Reason: patient no longer taking Past Medical History Past Medical History: Atrial Fibrillation, Diverticulitis, Gastritis, GI Bleed, Chronic Pain, Chronic Back Pain Past Surgical History: appendectomy, hysterectomy, orthopedic surgeries, pacemaker, other Other Past Surgical History: eye surgery Patient History: Autoimmune disorder MOTHER FH: heart disease Maternal grandmother Maternal grandfather Other Past Family History: NONCONTRIBUTORY Alcohol Use: None Drug Use: marijuana Lives In: Home Review of Systems ROS All review of systems negative except as per HPI Physical Exam Vital Signs: Temperature: 97.8, Heart Rate: 70, Respiratory Rate: 16, BP: 186/93, Pulse Oximetry: 98, Weight: 63.320 Physical Exam General: Patient is awake, alert, oriented x4 in no acute distress Head: Normocephalic and atraumatic. Eyes: Conjunctival normal. EOMI. PERRL. ENT: Mucous membranes moist. Neck: Supple, trachea is midline. Chest: Clear to auscultation bilaterally without rales, rhonchi, or wheezes. There is no accessory muscle use or retractions. Cardiac: RRR without murmurs, gallops, or rubs. Abd: Soft, nondistended, nontender, with normoactive bowel sounds. No guarding, rebound, or rigidity. : Deferred Progress Results/Orders Results/Orders Completed Orders - TOY TARANGO MD Hydralazine Tablet (Apresoline 10mg Tabl (05/08/25 05:10) Ua W/Microscopic, Cult If Ind (05/08/25 04:38) Vital Signs 05/08/25 04:17 Temp 97.8 Pulse 70 Resp 16 B/P (MAP) 186/93 Pulse Ox 98 Laboratory Tests Test 05/08/25 04:38 Urine Specimen Description Cln catch midstream Urine Color Yellow Urine Clarity Clear Urine pH 6.0 Urine Specific [place] 1.020 Urine Protein Negative Urine Glucose (UA) Negative Urine Ketones Negative Urine Occult Blood Trace-lysed Urine Nitrite Negative Urine Bilirubin Negative Urine Urobilinogen 0.2 Urine Leukocyte Esterase Negative Urine RBC 3-10 Urine WBC 0-4 Urine Squamous Epithelial Cells Many Urine Bacteria Few Urine Culture Indicated Not ind Volume Urine Centrifuged 10 ml Urine Comment Medical Decision Making Additional information obtaine: old records Findings Patient presents to the emergency room for evaluation of high blood pressure and dysuria. Differentials include but are not limited to urinary tract infection, hypertensive emergency, uncontrolled hypertension, end-organ failure. Urinalysis is reassuring unknown cause for patient's dysuria. She has been advised to follow up with her doctor. Patient's blood pressure has come down spontaneously and he had not feel she requires emergent labs for investigation into hypertensive emergency. The need to follow up with her doctor discussed. I will not be altering her medications as she reports that she has a hyperdynamic blood pressure and I do not want to cause hypotension. Differential Dx:Considerations: Include CHF, Include HTN, essential, Include HTN, accelerated, Include HTN, malignant, Include HTN, encephalopathy, Include medical noncompliance, Include medication withdrawal, Include pulmonary edema, Include renal failure, Include -induced, Include other Departure Disposition: 01 HOME / SELF CARE / HOMELESS Impression: Primary Impression: Uncontrolled hypertension Additional Impression: Dysuria Condition: Stable Discharge Instructions: Hypertension, Adult Additional Instructions: Follow up with your doctor for re-evaluation. Referrals: NO PRIMARY CARE PROVIDER (PCP) Signature Scribe Signature: No scribe Attestation: The note accurately reflects work and decisions made by me.Toy Tarango MD 05/08/25 05:50 TOY TARANGO MD May 08, 2025 04:46
[2025-05-08 05:20] LABS: LEUKOCYTE ESTERASE ,URINE NEGATIVE (Neg); NITRITES, URINE NEGATIVE (Neg); OCCULT BLOOD,URINE TRACE-LYSED (Neg)
[2025-05-08 05:27] LABS: UA COLLECTION TYPE CLN CATCH MIDSTREAM
[2025-05-08 05:29] LABS: SQUAMOUS EPITHELIAL CELL,UR MANY /LPF (FEW)
[2025-05-08 08:25] VITALS: BP 169/72; PULSE 71; RESP 19; TEMP 97.8; O2SAT 99
== END 2025-05-08 08:27 | disposition home or self-care (01) ==
LOC: ER 04:12
DX: I10 Essential (primary) hypertension (principal); R30.0 Dysuria; I48.91 Unspecified atrial fibrillation; F12.90 Cannabis use, unspecified, uncomplicated; Z88.6 Allergy status to analgesic agent; Z90.49 Acquired absence of other specified parts of digestive tract; Z90.710 Acquired absence of both cervix and uterus; Z95.0 Presence of cardiac pacemaker
CPT/HCPCS: 81001; 99283